=== PATIENT | male | born 1940 | race Caucasian/White ===

== ENCOUNTER → 2016-08-27 | Outpatient (REF) | payer MEDICARE, BC ==
[~2016-08-27] MED LIST: ATOR1TAB21 PO; IMOD2TAB16 PO; KOMBIGLYZE PO; LISI10TA4 PO; SERT-138 PO; TAMS0.4C2 PO; VITA500T53 PO
== END ==
LOC: M SMT 13:19
PROVIDERS: ATTEND Nurse Practitioner Women's Health
DX: R39.15 Urgency of urination (principal)
CPT/HCPCS: 51798; 81001; 87086; G0463

== ENCOUNTER 2017-07-07 10:50 | Emergency (ER) | payer MEDICARE, BC | END 2017-07-07 12:34 | disposition home or self-care (01) | LOC: M ED 10:50 | DX: L03.211 Cellulitis of face (principal); B02.8 Zoster with other complications; E11.9 Type 2 diabetes mellitus without complications; I10 Essential (primary) hypertension; E78.00 Pure hypercholesterolemia, unspecified; M19.90 Unspecified osteoarthritis, unspecified site; Z87.19 Personal history of other diseases of the digestive system; Z87.891 Personal history of nicotine dependence; Z88.8 Allergy status to other drugs, medicaments and biological substances; Z79.899 Other long term (current) drug therapy; Z79.82 Long term (current) use of aspirin | CPT/HCPCS: 99283 ==

== ENCOUNTER → 2018-10-02 | Outpatient (REF) | payer MEDICARE, BC ==
[~2018-10-02] MED LIST changes: +ACYC800T PO; +ASPI81TA85 PO; +CLEO300C2 PO; +JANU50TA8 PO; +NIAC500T64 PO; +OXYB5TAB PO; +PREDOPD PO; +TYLE325T5 PO; +VITA500T17 PO; -VITA500T53 PO
[2018-10-02 18:03] LABS: APPEARANCE, URINE HAZY (CLEAR); BACTERIA, URINE AUTO NEGATIVE (NEGATIVE); BILIRUBIN, URINE AUTO NEGATIVE (NEGATIVE); BLOOD, URINE BLOOD NEGATIVE (NEGATIVE); COLOR, URINE YELLOW (YELLOW); GLUCOSE, URINE (UA) AUTO NEGATIVE (NEGATIVE); KETONE, URINE AUTO NEGATIVE (NEGATIVE); LEUKOCYTE ESTERASE, URINE AUTO 3+ (NEGATIVE); MUCUS, URINE SMALL (NEGATIVE); NITRITE, URINE AUTO NEGATIVE (NEGATIVE); PROTEIN, URINE AUTO NEGATIVE (NEGATIVE); RBC, URINE AUTO 1 /HPF (0-3); SPECIFIC GRAVITY URINE AUTO 1.017 (1.002-1.035); SQUAMOUS EPITHELIAL CELL UR AU 0 /HPF (0-6); UROBILINOGEN, URINE AUTO 0.2 mg/dL (0.0-2.0); WBC, URINE AUTO 2 /HPF (0-3)
== END ==
LOC: M SMT 17:03
PROVIDERS: ATTEND Nurse Practitioner Women's Health
DX: R39.15 Urgency of urination (principal)
CPT/HCPCS: 51798; 81001; 87086; G0463

== ENCOUNTER → 2019-01-21 | Outpatient (REF) | payer MEDICARE, BC ==
[~2019-01-21] MED LIST changes: -OXYB5TAB PO; +OXYB5TAB2 PO
[2019-01-21 14:14] LABS: APPEARANCE, URINE CLEAR (CLEAR); BACTERIA, URINE AUTO NEGATIVE (NEGATIVE); BILIRUBIN, URINE AUTO NEGATIVE (NEGATIVE); BLOOD, URINE BLOOD NEGATIVE (NEGATIVE); COLOR, URINE YELLOW (YELLOW); GLUCOSE, URINE (UA) AUTO NEGATIVE (NEGATIVE); KETONE, URINE AUTO NEGATIVE (NEGATIVE); LEUKOCYTE ESTERASE, URINE AUTO 2+ (NEGATIVE); NITRITE, URINE AUTO NEGATIVE (NEGATIVE); PROTEIN, URINE AUTO NEGATIVE (NEGATIVE); RBC, URINE AUTO 1 /HPF (0-3); SPECIFIC GRAVITY URINE AUTO 1.012 (1.002-1.035); SQUAMOUS EPITHELIAL CELL UR AU 1 /HPF (0-6); UROBILINOGEN, URINE AUTO 0.2 mg/dL (0.0-2.0); WBC, URINE AUTO 27 /HPF (0-3)
== END ==
LOC: M SMT 13:14
PROVIDERS: ATTEND Nurse Practitioner Women's Health
DX: R39.15 Urgency of urination (principal)
CPT/HCPCS: 51798; 81001; 87088; 87184; G0463

== ENCOUNTER → 2020-05-06 | Outpatient (CLI) | payer MEDICARE, BC ==
[~2020-05-06] MED LIST changes: -ASPI81TA85 PO; +ASPI81TA86 PO; +LISI10TA22 PO; -LISI10TA4 PO; +OXYB-54 PO; -OXYB5TAB2 PO
--- NOTE | 2020-05-14 23:28 | ECWPNPC ---
PATIENT NAME: NATHALY HECK : 1940 GENDER: MALE VISIT DATE: 05/06/2020 DISCHARGE DATE: 05/06/20931 VISIT LOCKED DATE TIME: PHYSICIAN: ANN MONGE RESOURCE: ANN MONGE REASON FOR APPOINTMENT 1. LUMBAR HISTORY OF PRESENT ILLNESS DEPRESSION SCREENING: PHQ-9 LITTLE INTEREST OR PLEASURE IN DOING THINGSSEVERAL DAYS FEELING DOWN, DEPRESSED, OR HOPELESSNOT AT ALL TROUBLE FALLING OR STAYING ASLEEP, OR SLEEPING TOO MUCHNEARLY EVERY DAY FEELING TIRED OR HAVING LITTLE ENERGYNEARLY EVERY DAY POOR APPETITE OR OVEREATING NEARLY EVERY DAY FEELING BAD ABOUT YOURSELF-OR THAT YOU ARE A FAILURE OR HAVE LET YOURSELF OR YOUR FAMILY DOWN NEARLY EVERY DAY TROUBLE CONCENTRATING ON THINGS, SUCH READING THE NEWSPAPER OR WATCHING TELEVISION NOT AT ALL MOVING OR SPEAKING SO SLOWLY THAT OTHER PEOPLE COULD HAVE NOTICED. OR THE OPPOSITE- BEING SO FIDGETY OR RESTLESS THAT YOU HAVE BEEN MOVING AROUND A LOT MORE THAN USUALNOT AT ALL THOUGHTS THAT YOU WOULD BE BETTER OFF , OR OF HURTING YOURSELF IN SOME WAY?MORE THAN HALF THE DAYS(CONSIDER SUICIDE ASSESSMENT RISK) TOTAL SCORE:15 INTERPRETATIONMODERATELY SEVERE DEPRESSION PHQ-2 (2015 EDITION) LITTLE INTEREST OR PLEASURE IN DOING THINGS?MORE THAN HALF THE DAYS FEELING DOWN, DEPRESSED, OR HOPELESS?NOT AT ALL TOTAL SCORE2 GENERAL: PLEASANT 79Y/O HERE PER REFERRAL OF [facility] FOR CHRONIC LOW BACK PAIN.REPORTS HE HAD A CYST REMOVED IN 2019 FROM LOW BACK.PAIN IS ACROSS LOW BACK AND DOWN LEFT LEG.PAST MEDICAL HISTOY OF MILD STROKE 2 YEARS AGO.- HAS PAIN WITH AMBULATION AND RELIEF AT REST.REVIEWED MRI OF L/S SPINE AND DISCUSSED TREATMENT OPTIONS. - - - -. FALL RISK SCREENING: SCREENING :TWO OR MORE FALLS WITHOUT INJURY IN THE PAST YEAR PAIN SCREENING: PATIENT HAS A COMPLAINT OF ACUTE OR CHRONIC PAIN :YES LOCATION OF PAIN:LOW BACK PAIN GOES DOWN LEFT LEG INTENSITY OF PAIN (SCALE OF 1 TO 10):3 WHAT DOES YOUR PAIN FEEL LIKE:ACHING DURATION:INTERMITTENT PAIN IS INCREASED BY:ACTIVITIES PAIN IS DECREASED BY:SITTING NURSING NOTE: - - - - - -. PAIN CENTER INTAKE QUESTIONS: DO YOU HAVE A HISTORY OF MRSA? :NO DO YOU TAKE A BLOOD THINNERS? :NO DO YOU HAVE ANY BLEEDING DISORDERS? :NO ANY NEW NUMBNESS OR WEAKNESS IN YOUR LEGS OR ARMS? :NO ANY PACEMAKER,DEFIBRILLATOR, OR DORSAL COLUMN STIMULATOR? :NO DO YOU HAVE ANY RASHES OR OPEN SORES? :NO ARE YOU ALLERGIC TO IV DYE? :NO ARE YOU DIABETIC? :YES ANY NEW PROBLEMS WITH YOUR MEDICATIONS? :NO HAVE YOU RECEIVED A VACCINE IN THE PAST 30 DAYS? :YES IF SO WHAT VACCINE AND WHEN? COVID 1ST DO YOU PLAN TO RECEIVE A VACCINE IN THE NEXT 21 DAYS? :YES IF SO WHAT VACCINE AND WHEN? COVID 2ND DO YOU NEED ANY PRESCRIPTION? :NO DO YOU TAKE ANY IMMUNOSUPPRESSIVE MEDICATIONS? :NO CURRENT MEDICATIONS TAKING ROPINIROLE HCL 0.5 MG TABLET 1 TABLET 1 TO 3 HOURS BEFORE BEDTIME ORALLY BID TAKING ATORVASTATIN CALCIUM 20 MG TABLET 1 TABLET ORALLY ONCE A DAY TAKING VITAMIN D3 50 MCG (2000 UT) CAPSULE 1 CAPSULE ORALLY ONCE A DAY TAKING ASPIR-LOW 81 MG TABLET DELAYED RELEASE 1 TABLET ORALLY ONCE A DAY TAKING B COMPLEX 1 TAB ORAL TAKING JANUMET 50-500 MG TABLET 1 TABLET WITH MEALS ORALLY TWICE A DAY TAKING LOPERAMIDE HCL 2 MG CAPSULE 1 CAPSULE NEEDED ORALLY FOUR TIMES A DAY TAKING SERTRALINE HCL 100 MG TABLET 2 TABLET ORALLY ONCE A DAY TAKING SILODOSIN 8 MG CAPSULE 1 CAPSULE WITH A MEAL ORALLY ONCE A DAY NOT-TAKING LISINOPRIL 10 10 MG TABLET 1/2 TABLET ORAL DAILY NOT-TAKING KOMBIGLYZE 2.07/999 MG DIRECTED NOT-TAKING LIPITOR 10 MG TABLET 1 TABLET ORALLY ONCE A DAY NOT-TAKING OXYBUTYNIN CHLORIDE ER 10 MG TABLET EXTENDED RELEASE 24 HOUR TAKE ONE TABLET BY MOUTH EVERY DAY ORALLY DAILY IN THE EVENING NOT-TAKING MACROBID 100 MG CAPSULE 1 CAP ORALLY BID NOT-TAKING ZOLOFT 100 MG TABLET 1 TABLET ORALLY ONCE A DAY 150MG DAILY NOT-TAKING JANUMET XR 50-1000 MG TABLET EXTENDED RELEASE 24 HOUR 2 TABLETS WITH EVENING MEAL ORALLY ONCE A DAY NOT-TAKING LOPERAMIDE HCL 2 MG CAPSULE 1 CAPSULE NEEDED ORALLY BID NOT-TAKING VITAMIN B 12 500 MCG TABLET 2 TABLET ORALLY ONCE A DAY NOT-TAKING VITAMIN B6 50 MG TABLET 1 TABLET ORALLY DAILY NOT-TAKING GABAPENTIN 300 MG CAPSULE 1 CAPSULE ORALLY ONCE A DAY NOT-TAKING RAPAFLO 8 MG CAPSULE 1 CAPSULE WITH A MEAL ORALLY ONCE A DAY MEDICATION LIST REVIEWED AND RECONCILED WITH THE PATIENT PAST MEDICAL HISTORY DIABETES MELLITUS HYPERTENSION DEPRESSION HYPERLIPIDEMIA HYPERTROPHY BENIGN OF PROSTATE DIVERTICULOSIS COLON ANXIETY LOW BACK PAIN BLOOD TRANSFUSION CATARACTS TYYPE 2 DIABETES HEADACHE NERVE/MUSCLE DISEASE ALLERGIES MOTRIN: HIVES - ALLERGY MOLD: EYE SWELLING - ALLERGY NIACIN: RASH - ALLERGY SURGICAL HISTORY LEFT HERNIA REPAIR,INGUINAL 2007 AORTIC ANURYSM REPAIR 1983 SPINAL CYST REMOVED FAMILY HISTORY FATHER: 93 YRS, OLD AGE MOTHER: 95 YRS SIBLINGS: 62 YRS, HEART PROBLEMS SON(S): , SON -STAB WOUND DAUGHTER(S): ALIVE 4 SON(S) , 2 DAUGHTER(S) - HEALTHY. NEGATIVE FOR PROSTATE CANCER OR ANY OTHER UROLOGIC DISEASE. SOCIAL HISTORY GENERAL: TOBACCO USE ARE YOU A:NONSMOKER LATEX QUESTIONNAIRE LATEX ALLERGY : HAVE YOU EVER DEVELOPED ANY TYPE OF REACTION AFTER HANDLING LATEX PRODUCTS SUCH RUBBER GLOVES, CONDOMS, DIAPHRAGMS, BALLOONS, SOCKS, OR UNDERWEAR?NO LATEX ALLERGY : HAVE YOU EVER DEVELOPED ANY TYPE OF REACTION DURING OR AFTER DENTAL APPOINTMENT, VAGINAL/RECTAL EXAMINATION, SURGICAL PROCEDURE, OR ANY OTHER EXPOSURE?NO LATEX RISK : HAVE YOU EVER HAD ANY DIFFICULTY BREATHING OR HIVES AFTER EATING OR HANDLING ANY FRUITS, OR VEGETABLES; SUCH KIWI, BANANAS, STONE FRUITS, OR CHESTNUTSNO LATEX RISK : DO YOU HAVE A PREVIOUS PERSONAL HISTORY OF MORE THAN NINE SURGERIES, SPINA BIFIDA, OR REPEATED CATHERIZATIONS? NO LATEX RISK : ARE YOU FREQUENTLY EXPOSED TO LATEX PRODUCTS IN YOUR OCCUPATION?NO DATE ASKED : 05/06/2020 ALCOHOL USE: NO. ALCOHOL SCREENING DID YOU HAVE A DRINK CONTAINING ALCOHOL IN THE PAST YEAR?YES HOW OFTEN DID YOU HAVE A DRINK CONTAINING ALCOHOL IN THE PAST YEAR?MONTHLY OR LESS (1 POINT) POINTS1 INTERPRETATIONNEGATIVE RECREATIONAL DRUG USE DENIES. CAFFEINE 2/DAY. UATSDIN UATSDIN NO CONFUCIANISM BELIEFS THAT WOULD IMPACT HEALTH CARE. LANGUAGE SOMALI. LEARNING BARRIERS / SPECIAL NEEDS BARRIERS TO LEARNING?NO HEARING IMPAIRED?NO VISION IMPAIRED?NO READING COGNITIVELY IMPAIRED?NO READINESS TO LEARN?YES LEARNING PREFERENCES?NO LEARNING CAPABILITIES PRESENT?YES EMOTIONAL BARRIERS?NO SPECIAL DEVICES?NO PATIENT CARE COORDINATOR NEEDED?NO DOMESTIC VIOLENCE NONE. 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 EXERCISE: NO REGULAR EXERCISE. MARITAL STATUS: . HOSPITALIZATION/MAJOR DIAGNOSTIC PROCEDURE SURGICAL RELATED REVIEW OF SYSTEMS CONSTITUTIONAL: ANY RECENT FEVER NO . CHILLS NO . WEIGHT CHANGE OF UNKNOWN REASONS NO . GASTROENTEROLOGY: NEW UNEXPLAINABLE CHANGES IN BOWEL CONTROL NO . CONSTIPATION NO . GENITOURINARY: ANY NEW CHANGE IN BLADDER CONTROL? NO . NEUROLOGY: NEW ONSET DIZZINESS OR NEUROLOGICAL CHANGES NOT MENTIONED NO . NEW NUMBNESS OR PAIN PATTERNS NOT MENTIONED AND PERTINENT TO TODAY'S VISIT NO . CARDIOLOGY: NEW CHEST PRESSURE NO . PATIENT DENIES NO . RESPIRATORY: UNEXPLAINABLE COUGH NO . NEW SHORTNESS OF BREATH NO . VITAL SIGNS WT 165.2 LBS, HT 5'6, BMI 32.26 INDEX, BP 102/59 MM HG, HR 82 /MIN, RR 18 /MIN, TEMP 97.1 F, OXYGEN SAT % 100%, SAFE IN ENV? (Y/N) YES, NA INITIALS AW 0847T.CARLOS GUTIERREZ. EXAMINATION GENERAL EXAMINATION: GENERALNO ACUTE DISTRESS, WELL NOURISHED AND HYDRATED. PSYCHAPPROPRIATE MOOD AND AFFECT . NECK:NO LYMPHADENOPATHY, SUPPLE. LUNGS:CLEAR TO AUSCULTATION BILATERALLY, NO WHEEZES, RHONCHI, RALES. HEART:NO MURMURS, REGULAR RATE AND RHYTHM. LUMBAR: MUSCLE STRENGTH TESTING 5/5 BILATERAL, PALPATION: NEGATIVE FOR PAIN OVER L/S SPINE. NEGATIVE FOR PAIN OVER L/S PARSPINALS. 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 PROCEDURE CODES FA211 ESTABILISHED PATIENT [facility] CHARGE DISPOSITION & COMMUNICATION FOLLOW UP PT WILL CALL IF NEEDED (REASON: LOW BACK PAIN) ELECTRONICALLY SIGNED BY ANITHA LOVE ON 05/14/2020 AT 07:45 PM EST DISCLAIMER : THIS IS A VISIT SUMMARY EXTRACTED FROM THE [employer] CHART. IT IS NOT A COPY OF THE [employer] PROGRESS NOTE. TERI
== END ==
LOC: M PAIN 08:30
PROVIDERS: ATTEND Nurse Practitioner Family
DX: M47.816 Spondylosis without myelopathy or radiculopathy, lumbar region (principal); E11.9 Type 2 diabetes mellitus without complications; I10 Essential (primary) hypertension; F32.9 Major depressive disorder, single episode, unspecified; E78.5 Hyperlipidemia, unspecified; N40.0 Benign prostatic hyperplasia without lower urinary tract symptoms; F41.9 Anxiety disorder, unspecified; M54.5 Low back pain; Z79.82 Long term (current) use of aspirin; Z79.899 Other long term (current) drug therapy; Z88.6 Allergy status to analgesic agent; Z88.8 Allergy status to other drugs, medicaments and biological substances; Z91.048 Other nonmedicinal substance allergy status

== ENCOUNTER → 2020-08-16 | Outpatient (CLI) | payer MEDICARE, BC ==
[~2020-08-16] MED LIST changes: +ACYC1TAB4 PO; -ACYC800T PO
--- NOTE | 2020-08-17 00:24 | ECWPNPC ---
PATIENT NAME: NATHALY HECK : 1940 GENDER: MALE VISIT DATE: 08/16/2020 DISCHARGE DATE: 08/16/20952 VISIT LOCKED DATE TIME: PHYSICIAN: ANN MONGE RESOURCE: ANN MONGE REASON FOR APPOINTMENT 1. LUMBER/FOR INJECTIONS HISTORY OF PRESENT ILLNESS GENERAL: 79-YEAR-OLD GENTLEMAN KNOWN TO OUR PRACTICE RETURNS FOR FOLLOW-UP OF PERSISTENT LOW BACK PAIN LEFT GREATER THAN RIGHT. PAIN RADIATES INTO THE LEFT THIGH AND SOMETIMES ON THE RIGHT SIDE. PAIN IS AGGRAVATED BY PROLONGED STANDING OR WALKING. REVIEWED MRI OF THE LS-SPINE AND DISCUSSED TREATMENT OPTIONS. DENIES BOWEL OR BLADDER INCONTINENCE. DENIES RECENT FEVER OR ILLNESS OR SUDDEN WEIGHT LOSS. DENIES INJURY. -. FALL RISK SCREENING: SCREENING FALL ALL THE TIME BUT NEVER GOES TO ER FOR ANY OF THE FALLS. PAIN SCREENING: PATIENT HAS A COMPLAINT OF ACUTE OR CHRONIC PAIN :YES LOCATION OF PAIN:LOW BACK THE PAIN GOES DOWN INTO HIS LEFT BUTTOCK AND DOWN INTO HIS KNEES INTENSITY OF PAIN (SCALE OF 1 TO 10):4 WHAT DOES YOUR PAIN FEEL LIKE:SORE DURATION:ONLY WITH SPECIFIC ACTIVITIES PAIN IS INCREASED BY:ACTIVITIES, PROLONGED STANDING PAIN IS DECREASED BY:OTHERS LAYING ON HUIS BACK ON THE FLOOR NURSING NOTE: -. PAIN CENTER INTAKE QUESTIONS: DO YOU HAVE A HISTORY OF MRSA? :NO DO YOU TAKE A BLOOD THINNERS? :NO DO YOU HAVE ANY BLEEDING DISORDERS? :NO ANY NEW NUMBNESS OR WEAKNESS IN YOUR LEGS OR ARMS? :NO ANY PACEMAKER,DEFIBRILLATOR, OR DORSAL COLUMN STIMULATOR? :NO DO YOU HAVE ANY RASHES OR OPEN SORES? :NO ARE YOU ALLERGIC TO IV DYE? :NO ARE YOU DIABETIC? :YES ANY NEW PROBLEMS WITH YOUR MEDICATIONS? :NO HAVE YOU RECEIVED A VACCINE IN THE PAST 30 DAYS? :NO 1ST COVID 04/11/2020 2ND COVID 05/09/2020 DO YOU PLAN TO RECEIVE A VACCINE IN THE NEXT 21 DAYS? :NO DO YOU NEED ANY PRESCRIPTION? :NO DO YOU TAKE ANY IMMUNOSUPPRESSIVE MEDICATIONS? :NO CURRENT MEDICATIONS TAKING ROPINIROLE HCL 0.5 MG TABLET 1 TABLET 1 TO 3 HOURS BEFORE BEDTIME ORALLY BID TAKING ATORVASTATIN CALCIUM 20 MG TABLET 1 TABLET ORALLY ONCE A DAY TAKING SILODOSIN 8 MG CAPSULE 1 CAPSULE WITH A MEAL ORALLY ONCE A DAY TAKING SERTRALINE HCL 100 MG TABLET 2 TABLET ORALLY ONCE A DAY TAKING LOPERAMIDE HCL 2 MG CAPSULE 1 CAPSULE NEEDED ORALLY FOUR TIMES A DAY TAKING VITAMIN D3 50 MCG (1999 UT) CAPSULE 1 CAPSULE ORALLY ONCE A DAY TAKING ASPIR-LOW 81 MG TABLET DELAYED RELEASE 1 TABLET ORALLY ONCE A DAY TAKING B COMPLEX 1 TAB ORAL TAKING JANUMET 50-500 MG TABLET 1 TABLET WITH MEALS ORALLY TWICE A DAY TAKING RAPAFLO 8 MG CAPSULE TAKE ONE CAPSULE BY MOUTH EVERY DAY WITH A MEAL TAKING GABAPENTIN 300 MG CAPSULE 1 CAPSULE ORALLY ONCE A DAY NOT-TAKING LISINOPRIL 10 10 MG TABLET 1/2 TABLET ORAL DAILY NOT-TAKING KOMBIGLYZE 2.07/999 MG DIRECTED NOT-TAKING LIPITOR 10 MG TABLET 1 TABLET ORALLY ONCE A DAY NOT-TAKING OXYBUTYNIN CHLORIDE ER 10 MG TABLET EXTENDED RELEASE 24 HOUR TAKE ONE TABLET BY MOUTH EVERY DAY ORALLY DAILY IN THE EVENING NOT-TAKING MACROBID 100 MG CAPSULE 1 CAP ORALLY BID NOT-TAKING ZOLOFT 100 MG TABLET 1 TABLET ORALLY ONCE A DAY 150MG DAILY NOT-TAKING JANUMET XR 50-1000 MG TABLET EXTENDED RELEASE 24 HOUR 2 TABLETS WITH EVENING MEAL ORALLY ONCE A DAY NOT-TAKING LOPERAMIDE HCL 2 MG CAPSULE 1 CAPSULE NEEDED ORALLY BID NOT-TAKING VITAMIN B 12 500 MCG TABLET 2 TABLET ORALLY ONCE A DAY NOT-TAKING VITAMIN B6 50 MG TABLET 1 TABLET ORALLY DAILY MEDICATION LIST REVIEWED AND RECONCILED WITH THE PATIENT PAST MEDICAL HISTORY DIABETES MELLITUS HYPERTENSION DEPRESSION HYPERLIPIDEMIA HYPERTROPHY BENIGN OF PROSTATE DIVERTICULOSIS COLON ANXIETY LOW BACK PAIN BLOOD TRANSFUSION CATARACTS TYYPE 2 DIABETES HEADACHE NERVE/MUSCLE DISEASE ALLERGIES MOTRIN: HIVES - ALLERGY MOLD: EYE SWELLING - ALLERGY NIACIN: RASH - ALLERGY SOCIAL HISTORY GENERAL: TOBACCO USE ARE YOU A:NONSMOKER LATEX QUESTIONNAIRE LATEX ALLERGY : HAVE YOU EVER DEVELOPED ANY TYPE OF REACTION AFTER HANDLING LATEX PRODUCTS SUCH RUBBER GLOVES, CONDOMS, DIAPHRAGMS, BALLOONS, SOCKS, OR UNDERWEAR?NO LATEX ALLERGY : HAVE YOU EVER DEVELOPED ANY TYPE OF REACTION DURING OR AFTER DENTAL APPOINTMENT, VAGINAL/RECTAL EXAMINATION, SURGICAL PROCEDURE, OR ANY OTHER EXPOSURE?NO LATEX RISK : HAVE YOU EVER HAD ANY DIFFICULTY BREATHING OR HIVES AFTER EATING OR HANDLING ANY FRUITS, OR VEGETABLES; SUCH KIWI, BANANAS, STONE FRUITS, OR CHESTNUTSNO LATEX RISK : DO YOU HAVE A PREVIOUS PERSONAL HISTORY OF MORE THAN NINE SURGERIES, SPINA BIFIDA, OR REPEATED CATHERIZATIONS? NO LATEX RISK : ARE YOU FREQUENTLY EXPOSED TO LATEX PRODUCTS IN YOUR OCCUPATION?NO DATE ASKED : 08/16/2020 ALCOHOL USE: YES, ONCE OR TWICE A MONTH. ALCOHOL SCREENING DID YOU HAVE A DRINK CONTAINING ALCOHOL IN THE PAST YEAR?YES HOW OFTEN DID YOU HAVE A DRINK CONTAINING ALCOHOL IN THE PAST YEAR?MONTHLY OR LESS (1 POINT) POINTS1 INTERPRETATIONNEGATIVE RECREATIONAL DRUG USE DENIES. CAFFEINE 2/DAY. ORTHODOX ORTHODOX NO SIKHISM BELIEFS THAT WOULD IMPACT HEALTH CARE. LANGUAGE YORUBA. LEARNING BARRIERS / SPECIAL NEEDS BARRIERS TO LEARNING?NO HEARING IMPAIRED?YES :HEARING AIDES VISION IMPAIRED?YES READING COGNITIVELY IMPAIRED?NO READINESS TO LEARN?YES LEARNING PREFERENCES?NO LEARNING CAPABILITIES PRESENT?YES EMOTIONAL BARRIERS?NO SPECIAL DEVICES?NO PLANT SECURITY GUARD NEEDED?NO DOMESTIC VIOLENCE NONE. 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 EXERCISE: NO REGULAR EXERCISE. MARITAL STATUS: . REVIEW OF SYSTEMS CONSTITUTIONAL: ANY RECENT FEVER NO . CHILLS NO . WEIGHT CHANGE OF UNKNOWN REASONS NO . GASTROENTEROLOGY: NEW UNEXPLAINABLE CHANGES IN BOWEL CONTROL NO . CONSTIPATION NO . GENITOURINARY: ANY NEW CHANGE IN BLADDER CONTROL? NO . NEUROLOGY: NEW ONSET DIZZINESS OR NEUROLOGICAL CHANGES NOT MENTIONED NO . NEW NUMBNESS OR PAIN PATTERNS NOT MENTIONED AND PERTINENT TO TODAY'S VISIT NO . CARDIOLOGY: NEW CHEST PRESSURE NO . PATIENT DENIES NO . RESPIRATORY: UNEXPLAINABLE COUGH NO . NEW SHORTNESS OF BREATH NO . VITAL SIGNS WT 159.6 LBS, HT 5'6, BMI 31.17 INDEX, BP 135/64 MM HG, HR 65 /MIN, RR 18 /MIN, TEMP 96.8 F, OXYGEN SAT % 94%, SAFE IN ENV? (Y/N) YES, NA INITIALS NM 08:51T.CARLOS GUTIERREZ. EXAMINATION GENERAL EXAMINATION: GENERALNO ACUTE DISTRESS, WELL NOURISHED AND HYDRATED. PSYCHAPPROPRIATE MOOD AND AFFECT . FACE:UNREMARKABLE. NECK:NO LYMPHADENOPATHY, SUPPLE. LUNGS: LUNG SOUNDS ARE CLEAR . HEART: HEART RATE REGULAR . MUSCULOSKELETAL:*, MUSCLE STRENGTH TESTING 5/5 BILATERAL LOWER EXTREMITIES., ,PALPATION: POSITIVE FOR PAIN OVER L/S SPINE. POSITIVE FOR PAIN OVER L/S PARSPINALS.SPECIFIC POINT TENDERNESS OVER BILAT L4/5-L5/S1 LUMBR FACETS WITH FACET LOADING . NEUROLOGIC EXAM:NORMAL SENSATION TO LIGHT TOUCH UPPER AND LOWER EXTREMITIES. . DIAGNOSTIC TESTS REVIEWEDMRI LUMBAR SPINE 03/08/2020 . 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 PROCEDURE CODES FA211 ESTABILISHED PATIENT [facility] CHARGE DISPOSITION & COMMUNICATION FOLLOW UP POST PROCEDURE (REASON: BILATERAL THERAPEUTIC LUMBAR FACET BLOCK L4-5,L5-S1) ELECTRONICALLY SIGNED BY ANITHA LOVE ON 08/16/2020 AT 08:30 PM EDT DISCLAIMER : THIS IS A VISIT SUMMARY EXTRACTED FROM THE [employer] CHART. IT IS NOT A COPY OF THE [employer] PROGRESS NOTE. TERI
== END ==
LOC: M PAIN 09:00
PROVIDERS: ATTEND Nurse Practitioner Family
DX: M47.816 Spondylosis without myelopathy or radiculopathy, lumbar region (principal); E11.9 Type 2 diabetes mellitus without complications; Z86.59 Personal history of other mental and behavioral disorders; Z88.6 Allergy status to analgesic agent; Z88.8 Allergy status to other drugs, medicaments and biological substances; Z79.82 Long term (current) use of aspirin; Z79.84 Long term (current) use of oral hypoglycemic drugs; Z79.899 Other long term (current) drug therapy

== ENCOUNTER → 2020-09-10 | Outpatient (CLI) | payer MEDICARE, BC | LOC: M LABSMTC 08:03 | PROVIDERS: ATTEND Anesthesiology | DX: Z20.822 Contact with and (suspected) exposure to COVID-19 (principal) ==

== ENCOUNTER → 2020-09-15 | Outpatient (CLI) | payer MEDICARE, BC ==
--- NOTE | 2020-09-15 10:35 | REP ---
INDICATION: BILAT LFBT. COMPARISON: None. TECHNIQUE: Two views. 24.0 seconds of fluoroscopy time is reported. FINDINGS: A sequence of 2 last image hold fluoroscopically obtained spot radiograph(s) of the lumbar spine document(s) needle position(s) and contrast injection associated with injection procedure. IMPRESSION: Procedural imaging. <Electronically signed by Cristian Hernández > 09/15/20 [id number]
--- NOTE | 2020-09-16 03:18 | ECWPNPC ---
PATIENT NAME: NATHALY HECK : 1940 GENDER: MALE VISIT DATE: 09/15/2020 DISCHARGE DATE: 09/15/20 1054 VISIT LOCKED DATE TIME: PHYSICIAN: NICHOLAS ACEVES MD RESOURCE: NICHOLAS ACEVES MD REASON FOR APPOINTMENT 1. BILATERAL THERAPEUTIC LUMBAR FACET BLOCK L4-5,L5-S1 HISTORY OF PRESENT ILLNESS GENERAL: -. FALL RISK SCREENING: SCREENING : STATES HE HAS FALLEN MANY TIMES(AT LEAST 6), STATES HE LOSES HIS BALANCE WHEN HE LEANS FORWARD. HIT HIS HEAD ONCE-NO LOC. JUST CUTS AND BRUISES. NOT EVALUATED AFTER ANY OF THE FALLS. HAS TROUBLE WALKIN ON UNEVEN GROUND. PAIN SCREENING: PATIENT HAS A COMPLAINT OF ACUTE OR CHRONIC PAIN :YES LOCATION OF PAIN:LOW BACK, THIGH(S), KNEES LEFT THIGH AND LEFT KNEE INTENSITY OF PAIN (SCALE OF 1 TO 10):9 8-9 DEPENDING ON WHAT HE IS DOING WHAT DOES YOUR PAIN FEEL LIKE:ACHING, BURNING, INTERMITTENT, SHARP, TENDER, THROBBING, SHOOTING DURATION:MAINLY DURING THE DAY, INTERMITTENT WITH ACTIVITY PAIN IS INCREASED BY:ACTIVITIES, PROLONGED STANDING PROLONGED SITTING PAIN IS DECREASED BY:USE OF PAIN MEDICATIONS, OTHERS REST AND TYLENOL PAIN HAS INTERFERED WITH THE FOLLOWING: PRETTY MUCH EVERYTHING. CAN'T WALK VERY FAR AT ALL NURSING NOTE: -. PAIN CENTER INTAKE QUESTIONS: DO YOU HAVE A HISTORY OF MRSA? :NO DO YOU TAKE A BLOOD THINNERS? :NO DO YOU HAVE ANY BLEEDING DISORDERS? :NO ANY NEW NUMBNESS OR WEAKNESS IN YOUR LEGS OR ARMS? :NO ANY PACEMAKER,DEFIBRILLATOR, OR DORSAL COLUMN STIMULATOR? :NO DO YOU HAVE ANY RASHES OR OPEN SORES? :YES MULTIPLE BRUISES DUE TO THIN SKIN, NO OPEN AREAS AT THIS TIME ARE YOU ALLERGIC TO IV DYE? :NO ARE YOU DIABETIC? :YES ANY NEW PROBLEMS WITH YOUR MEDICATIONS? :NO HAVE YOU RECEIVED A VACCINE IN THE PAST 30 DAYS? :NO DO YOU PLAN TO RECEIVE A VACCINE IN THE NEXT 21 DAYS? :NO DO YOU TAKE ANY IMMUNOSUPPRESSIVE MEDICATIONS? :NO ANY HISTORY OF SEIZURES? :NO ANY HISTORY OF CARDIAC ISSUES OR EVENTS? :YES AORTIC ANEURYSM REPAIR, MILD STROKE DO YOU HAVE ANY KIDNEY OR LIVER DISEASE? :NO DO YOU HAVE SLEEP APNEA? :YES DO YOU WEAR A CPAP?YES ANY RECENT HEAD INJURY? :NO DO YOU HAVE ANY NEW INFECTIONS? :NO IS THERE A CHANCE YOU COULD BE ? :NO ARE YOU BREAST FEEDING? :NO WHEN DID YOU LAST EAT? : 09/14/20 WHEN DID YOU LAST DRINK? : 09/15/20 0300 WHAT DID YOU LAST DRINK? : WATER NAME OF PERSON DRIVING YOU HOME? : -MEENA DO YOU HAVE ANY OTHER QUESTIONS OR CONCERNS? : WANTED TO KNOW WHAT TO EXPECT FAR PAIN DUING THE PROCEDURE. PROCEDURE PROCESS EXPLAINED TO PT. ALONG WITH MEDICATIONS HE WILL RECEIVE PRE-PROCEDURE. PT. VERBALIZED UNDERSTANDING. CURRENT MEDICATIONS TAKING ROPINIROLE HCL 0.5 MG TABLET 1 TABLET ORALLY BID TAKING ATORVASTATIN CALCIUM 20 MG TABLET 1 TABLET ORALLY ONCE A DAY TAKING SILODOSIN 8 MG CAPSULE 1 CAPSULE WITH A MEAL ORALLY ONCE A DAY TAKING SERTRALINE HCL 100 MG TABLET 2 TABLET ORALLY ONCE A DAY TAKING LOPERAMIDE HCL 2 MG CAPSULE 1 CAP ORALLY BID TAKING VITAMIN D3 50 MCG (2000 UT) CAPSULE 1 CAPSULE ORALLY ONCE A DAY TAKING ASPIR-LOW 81 MG TABLET DELAYED RELEASE 1 TABLET ORALLY ONCE A DAY TAKING B COMPLEX 1 TAB ORAL DAILY TAKING JANUMET 50-500 MG TABLET 1 TABLET WITH MEALS ORALLY TWICE A DAY, NOTES: 09/14/20 TAKING TURMERIC 1000 MGS 1 CAP ORALLY BID NOT-TAKING RAPAFLO 8 MG CAPSULE TAKE ONE CAPSULE BY MOUTH EVERY DAY WITH A MEAL , NOTES: DUPLICATE NOT-TAKING GABAPENTIN 300 MG CAPSULE 1 CAPSULE ORALLY ONCE A DAY NOT-TAKING LISINOPRIL 10 10 MG TABLET 1/2 TABLET ORAL DAILY NOT-TAKING KOMBIGLYZE 2.07/999 MG DIRECTED NOT-TAKING LIPITOR 10 MG TABLET 1 TABLET ORALLY ONCE A DAY NOT-TAKING OXYBUTYNIN CHLORIDE ER 10 MG TABLET EXTENDED RELEASE 24 HOUR TAKE ONE TABLET BY MOUTH EVERY DAY ORALLY DAILY IN THE EVENING NOT-TAKING MACROBID 100 MG CAPSULE 1 CAP ORALLY BID NOT-TAKING ZOLOFT 100 MG TABLET 1 TABLET ORALLY ONCE A DAY 150MG DAILY NOT-TAKING JANUMET XR 50-1000 MG TABLET EXTENDED RELEASE 24 HOUR 2 TABLETS WITH EVENING MEAL ORALLY ONCE A DAY NOT-TAKING LOPERAMIDE HCL 2 MG CAPSULE 1 CAPSULE NEEDED ORALLY BID NOT-TAKING VITAMIN B 12 500 MCG TABLET 2 TABLET ORALLY ONCE A DAY NOT-TAKING VITAMIN B6 50 MG TABLET 1 TABLET ORALLY DAILY MEDICATION LIST REVIEWED AND RECONCILED WITH THE PATIENT PAST MEDICAL HISTORY DIABETES MELLITUS HYPERTENSION DEPRESSION HYPERLIPIDEMIA HYPERTROPHY BENIGN OF PROSTATE DIVERTICULOSIS COLON ANXIETY LOW BACK PAIN BLOOD TRANSFUSION CATARACTS TYYPE 2 DIABETES HEADACHE 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(THINKS THE STROKE WAS 2-3 YRS AGO) AORTIC ANEURYSM REPAIRED 1983 [facility] 2018 ALLERGIES MOTRIN: HIVES - ALLERGY MOLD: EYE SWELLING - ALLERGY NIACIN: RASH - ALLERGY GABAPENTIN: DIZZY AND MULTIPLE ISSUES - ALLERGY SOCIAL HISTORY GENERAL: TOBACCO USE ARE YOU A:FORMER SMOKER QUIT 10-12 YRS AGO LATEX QUESTIONNAIRE LATEX ALLERGY : HAVE YOU EVER DEVELOPED ANY TYPE OF REACTION AFTER HANDLING LATEX PRODUCTS SUCH RUBBER GLOVES, CONDOMS, DIAPHRAGMS, BALLOONS, SOCKS, OR UNDERWEAR?NO LATEX ALLERGY : HAVE YOU EVER DEVELOPED ANY TYPE OF REACTION DURING OR AFTER DENTAL APPOINTMENT, VAGINAL/RECTAL EXAMINATION, SURGICAL PROCEDURE, OR ANY OTHER EXPOSURE?NO LATEX RISK : HAVE YOU EVER HAD ANY DIFFICULTY BREATHING OR HIVES AFTER EATING OR HANDLING ANY FRUITS, OR VEGETABLES; SUCH KIWI, BANANAS, STONE FRUITS, OR CHESTNUTSNO LATEX RISK : DO YOU HAVE A PREVIOUS PERSONAL HISTORY OF MORE THAN NINE SURGERIES, SPINA BIFIDA, OR REPEATED CATHERIZATIONS? NO LATEX RISK : ARE YOU FREQUENTLY EXPOSED TO LATEX PRODUCTS IN YOUR OCCUPATION?NO DATE ASKED : 09/13/2020 ALCOHOL USE: YES, ONCE OR TWICE A MONTH. ALCOHOL SCREENING DID YOU HAVE A DRINK CONTAINING ALCOHOL IN THE PAST YEAR?YES HOW OFTEN DID YOU HAVE A DRINK CONTAINING ALCOHOL IN THE PAST YEAR?MONTHLY OR LESS (1 POINT) POINTS1 INTERPRETATIONNEGATIVE RECREATIONAL DRUG USE DENIES. CAFFEINE 2/DAY. MANDAEN MANDAEN NO ROMAN CATHOLIC BELIEFS THAT WOULD IMPACT HEALTH CARE. LANGUAGE ANGUILLAN. 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 EXERCISE: NO REGULAR EXERCISE. MARITAL STATUS: . - HAS THE PATIENT BEEN EDUCATED REGARDING HIS/HER PLAN OF CARE?YES HAS THE PATIENT BEEN EDUCATED REGARDING PAIN, THE RISK FOR PAIN, THE IMPORTANCE OF EFFECTIVE PAIN MANAGEMENT, AND THE PAIN ASSESSMENT PROCESS?YES ADVANCE DIRECTIVE ADVANCE DIRECTIVE DISCUSSED WITH PATIENT:YES STATES HE HAS HCP, LIVING WILL AND POA-ASKED TO BRING COPIES IN- HCP -MEENA [phone], 2ND KAYE NELY [phone] VITAL SIGNS WT 157.2 LBS, HT 5'6, BMI 30.70 INDEX, BP 142/63 MM HG, HR 68 /MIN, RR 18 /MIN, TEMP 98.0 F, OXYGEN SAT % 92%, BLOOD GLUCOSE LEVEL 120, NA INITIALS AW 0843FS @ HOME THIS AM BY PT. EM. EXAMINATION GENERAL: THE PATIENT IS ALERT, ORIENTED TIMES THREE AND COOPERATIVE. LUNGS ARE CLEAR TO AUSCULTATION. HEART SHOWS REGULAR RHYTHM, NO MURMURS AND NO GALLOPS. 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) TREATMENT LUMBAR FACET ARTHROPATHY [facility] FACET BLOCK (PAIN)[id number] COMPLETION OF PROCEDURAL VISIT WHEN MEETS CRITERIAJESSI VILLAGOMEZ 09/15/2020 12:02:44 PM > CRITERIA MET @ 1053 MEDICATION: VALIUM TAB 5MG ORALLY (DIAZEPAM)KEITH MEJÍA 09/15/2020 9:07:21 AM > VERIFIED JESSI VILLAGOMEZ 09/15/2020 9:10:18 AM > ADMINISTERED MEDICATION: OXYCODONE HCL TAB 5MG ORALLY KEITH MEJÍA 09/15/2020 9:07:52 AM > VERIFIED JESSI VILLAGOMEZ 09/15/2020 9:10:37 AM > ADMINISTERED SALINE LOCKSOHA KEITH 09/15/2020 9:05:38 AM > #22 SL STARTED X 1 ATTEMPT BY THIS ROPE COILING MACHINE OPERATOR IN RIGHT HAND. SITE ASYMPTOMATIC, FLUSHES WELL. PATIENT TOLERATED WELL OTHERS NOTES: 09/13/20 0955 PRE-PROCEDURE CALL COMPLETED. Nayeli COPE RN. PROCEDURES PAIN NURSING RECORD PROCEDURE IN ROOM 1000, PHYSICIAN IN ROOM 1012, START 1017, FINISH 1022, PHYSICIAN OUT OF ROOM 1023, OUT OF ROOM 1025, ECG NORMAL SINUS, PATIENT SHIELDED YES, SAFETY STRAP YES, PREP CHLOROPREP Rodrigue VILLAGOMEZ RN, DRESSING TEGADERM DR. ACEVES LOC: 1. ALERT, ORIENTED, JESSI VILLAGOMEZ 09/15/2020 10:17:41 AM > RESP: 1. REGULAR, NO DYSPNEA, JESSI VILLAGOMEZ 09/15/2020 10:17:46 AM > COLOR: 1. PINK, JESSI VILLAGOMEZ 09/15/2020 10:17:49 AM > SKIN: 1. WARM, DRY, JESSI VILLAGOMEZ 09/15/2020 10:17:53 AM > POSITION: 1. PRONE, JESSI VILLAGOMEZ 09/15/2020 10:05:59 AM > VITALS: AW 0925 P 60 02 96% BP 122/59 R 18 0940 P 61 02 97% BP 123/67 R18 AW 0955 P61 02 95% BP 128/60 R 18 149/69, 61, 16, 96%, JESSI VILLAGOMEZ 09/15/2020 10:06:28 AM > 134/68, 63, 16, 96%, JESSI VILLAGOMEZ 09/15/2020 10:15:22 PM > 138/63, 61, 16, 95%, JESSI VILLAGOMEZ 09/15/2020 10:20:50 PM > 130/62, 59, 16, 98%, JESSI VILLAGOMEZ 09/15/2020 10:30:12 PM > NOTES Rodrigue VILLAGOMEZ RN, JESSI VILLAGOMEZ 09/15/2020 9:48:20 AM > COMPLETION OF PROCEDURE APPOINTMENT: POST PAIN 4, DRESSING SITE DRY AND INTACT, IV DISCONTINUED, SITE CLEAR, CATHETER INTACT, GAIT STEADY, TEACHING COMPLETED, PATIENT ACKNOWLEDGES UNDERSTANDING YES, PROCEDURE APPOINTMENT COMPLETED AT 1053 PN LUMBAR FACET BLOCK THERAPEUTIC PRE PROCEDURE DIAGNOSIS LUMBAR SPONDYLOSIS, LUMBOSACRAL SPONDYLOSIS POST PROCEDURE DIAGNOSIS LUMBAR SPONDYLOSIS, LUMBOSACRAL SPONDYLOSIS PROCEDURE BILATERAL L4-L5 AND BILATERAL L5-S1 LUMBAR FACET THERAPEUTIC BLOCK SURGEON DR. NICHOLAS ACEVES DRAFTER AUTOMOTIVE DESIGN LAYOUT NONE ANESTHESIA LOCAL PRE PROCEDURE NOTE THE PATIENT HAS A HISTORY OF CHRONIC LOW BACK PAIN. I EVALUATED THE PATIENT AND REVIEWED THE CHART. I WENT OVER THE RISKS, ALTERNATIVES, AND BENEFITS ASSOCIATED WITH THIS PROCEDURE. THE PATIENT WOULD LIKE TO PROCEED AND GIVES CONSENT TO PERFORM THE PROCEDURE. THE PATIENT DENIES UNEXPLAINABLE WEIGHT LOSS, FEVER, CHILLS, OR NEW CHANGES IN URINARY OR BOWEL CONTROL. THE PATIENT IS COVID-19 NEGATIVE DESCRIPTION OF PROCEDURE THE PATIENT WAS BROUGHT TO THE PROCEDURE ROOM AND PLACED IN THE PRONE POSITION. THE LUMBOSACRAL AREA WAS CLEANED WITH CHLORAPREP SOLUTION AND DRAPED ASEPTICALLY. THE PROCEDURE WAS DONE UNDER STERILE CONDITIONS. A TIMEOUT WAS PERFORMED WHERE THE CONSENTED SITE WAS VERIFIED WITH EVERYONE IN THE ROOM. UNDER FLUOROSCOPIC GUIDANCE, THE TARGET POINT WAS SELECTED AT THE RIGHT AND LEFT L4-L5 AND RIGHT AND LEFT L5-S1 FACET JOINTS. TARGET POINT WAS SELECTED AFTER LATERAL ROTATION AND TILT OF THE MAGNIFIER OF THE C-ARM. I CONFIRMED AGAIN THE SITE OF TARGET. LIDOCAINE 0.5% WAS USED TO NUMB THE SKIN AND THE SUBCUTANEOUS TISSUE BELOW IT. SPINAL NEEDLES, 22-GAUGE, WERE ADVANCED UNDER FLUOROSCOPIC GUIDANCE AND FOLLOWING PATIENT FEEDBACK UNTIL THE TARGETS WERE TOUCHED. THE POSITION OF THE NEEDLES WAS VERIFIED WITH AP AND LATERAL VIEWS. AFTER PROPER POSITION OF THE NEEDLES WAS ACHIEVED, ISOVUE-M DYE 30%, 0.1 ML, WAS INJECTED SHOWING ADEQUATE SPREAD OF THE DYE. KENALOG 10 MG WAS INJECTED AT EACH SITE. THEN, A SOLUTION OF 1.0 ML OF BUPIVACAINE 0.125% OF WAS USED TO FLUSH EACH SITE. THE MEDICATION WAS VERIFIED WITH THE NURSE. THERE WAS NO EVIDENCE OF BLOOD, PARESTHESIA OR CEREBROSPINAL FLUID DURING THE PROCEDURE. THE PATIENT WAS SENT TO THE RECOVERY ROOM. THE PATIENT WAS MOVING THE EXTREMITIES AND DOING WELL. THERE WERE NO COMPLICATIONS DURING THE PROCEDURE. ESTIMATED BLOOD LOSS WAS LESS THAN 5 ML. FLUOROSCOPY TIME WAS 24 SECONDS POST PROCEDURE NOTE THE PATIENT WAS UNCOMFORTABLE DURING THE PROCEDURE, CONSIDER USING MORE MEDICATION BEFORE THE PROCEDURE. DEPENDING ON THE RESULTS, CONSIDER A LUMBAR EPIDURAL. THE PATIENT WILL BE SEEN IN A FOLLOW UP IN THE NEXT FEW WEEKS. I AM LOOKING FOR LONG LASTING RELIEF FOR THE PATIENT WITH THIS INTERVENTION. INSTRUCTIONS WERE GIVEN, QUESTIONS WERE ANSWERED, AND THE PATIENT EXPRESSED UNDERSTANDING AND AGREES WITH THE PLAN. I, JAILENE FREGOSO, DOCUMENTED THE ABOVE INFORMATION ACTING A SCRIBE FOR DR. ACEVES. I HAVE REVIEWED THE ABOVE DOCUMENT, WRITTEN BY JAILENE FREGOSO, LUMBER GRADER, AND I VERIFY THAT IT IS ACCURATE PROCEDURE CODES 83309 INJ PARAVERT F JNT L/S 1 LEV, MODIFIERS: 50 20621 INJ PARAVERT F JNT L/S 2 LEV, MODIFIERS: 50 DISPOSITION & COMMUNICATION FOLLOW UP FOLLOW UP WITH FURNITURE POLISHER (REASON: POST BILATERAL THERAPEUTIC LUMBAR FACET BLOCK L4-L5, L5-S1) ELECTRONICALLY SIGNED BY NICHOLAS ACEVES MD, MD ON 09/15/2020 AT 12:36 PM EDT DISCLAIMER : THIS IS A VISIT SUMMARY EXTRACTED FROM THE [employer] CHART. IT IS NOT A COPY OF THE [employer] PROGRESS NOTE. TERI
== END ==
LOC: M PAIN 08:30
PROVIDERS: ATTEND Anesthesiology
DX: M47.816 Spondylosis without myelopathy or radiculopathy, lumbar region (principal); E11.9 Type 2 diabetes mellitus without complications; G47.30 Sleep apnea, unspecified; Z86.59 Personal history of other mental and behavioral disorders; Z87.891 Personal history of nicotine dependence; Z88.6 Allergy status to analgesic agent; Z88.8 Allergy status to other drugs, medicaments and biological substances; Z79.82 Long term (current) use of aspirin; Z79.84 Long term (current) use of oral hypoglycemic drugs; Z79.899 Other long term (current) drug therapy

== ENCOUNTER → 2020-09-29 | Outpatient (CLI) | payer MEDICARE, BC ==
--- NOTE | 2020-09-30 05:31 | ECWPNPC ---
PATIENT NAME: NATHALY HECK : 1940 GENDER: MALE VISIT DATE: 09/29/2020 DISCHARGE DATE: 09/29/20 1011 VISIT LOCKED DATE TIME: PHYSICIAN: ANN MONGE RESOURCE: ANN MONGE REASON FOR APPOINTMENT 1. POST BILATERAL THERAPEUTIC LUMBAR FACET BLOCK L4-5,L5-S1 HISTORY OF PRESENT ILLNESS GENERAL: HERE FOR POSTPROCEDURE FOLLOW-UP. HE HAD BILATERAL THERAPEUTIC LUMBAR FACET BLOCK L4-5, L5-S1 ON 09/15/2020. REPORTING GREATER THAN 80% REDUCTION IN PAIN THAT CONTINUES TODAY. REPORTING IMPROVED ACTIVITY TOLERANCE. STATES HE HAS INTERMITTENT ACHING IN HIS LOWER BACK. OVERALL VERY HAPPY WITH THE RESULTS. -. FALL RISK SCREENING: SCREENING : NO FALLS REPORTED IN THE LAST YEAR. PAIN SCREENING: PATIENT HAS A COMPLAINT OF ACUTE OR CHRONIC PAIN :YES LOCATION OF PAIN:LOW BACK INTENSITY OF PAIN (SCALE OF 1 TO 10):2 WHAT DOES YOUR PAIN FEEL LIKE:ACHING, INTERMITTENT DURATION:ONLY WITH SPECIFIC ACTIVITIES, INTERMITTENT PAIN IS INCREASED BY:ACTIVITIES, PROLONGED STANDING PAIN IS DECREASED BY:OTHERS RESTING NURSING NOTE: -. PAIN CENTER INTAKE QUESTIONS: DO YOU HAVE A HISTORY OF MRSA? :NO DO YOU TAKE A BLOOD THINNERS? :NO DO YOU HAVE ANY BLEEDING DISORDERS? :NO ANY NEW NUMBNESS OR WEAKNESS IN YOUR LEGS OR ARMS? :NO ANY PACEMAKER,DEFIBRILLATOR, OR DORSAL COLUMN STIMULATOR? :NO DO YOU HAVE ANY RASHES OR OPEN SORES? :NO ARE YOU ALLERGIC TO IV DYE? :NO ARE YOU DIABETIC? :YES ANY NEW PROBLEMS WITH YOUR MEDICATIONS? :NO HAVE YOU RECEIVED A VACCINE IN THE PAST 30 DAYS? :NO DO YOU PLAN TO RECEIVE A VACCINE IN THE NEXT 21 DAYS? :NO DO YOU NEED ANY PRESCRIPTION? :NO DO YOU TAKE ANY IMMUNOSUPPRESSIVE MEDICATIONS? :NO CURRENT MEDICATIONS TAKING ROPINIROLE HCL 0.5 MG TABLET 1 TABLET ORALLY BID TAKING ATORVASTATIN CALCIUM 20 MG TABLET 1 TABLET ORALLY ONCE A DAY TAKING SILODOSIN 8 MG CAPSULE 1 CAPSULE WITH A MEAL ORALLY ONCE A DAY TAKING SERTRALINE HCL 100 MG TABLET 2 TABLET ORALLY ONCE A DAY TAKING LOPERAMIDE HCL 2 MG CAPSULE 1 CAP ORALLY BID TAKING VITAMIN D3 50 MCG (2000 UT) CAPSULE 1 CAPSULE ORALLY ONCE A DAY TAKING ASPIR-LOW 81 MG TABLET DELAYED RELEASE 1 TABLET ORALLY ONCE A DAY TAKING B COMPLEX 1 TAB ORAL DAILY TAKING JANUMET 50-500 MG TABLET 1 TABLET WITH MEALS ORALLY TWICE A DAY, NOTES: 09/14/20 TAKING TURMERIC 1000 MGS 1 CAP ORALLY BID NOT-TAKING RAPAFLO 8 MG CAPSULE TAKE ONE CAPSULE BY MOUTH EVERY DAY WITH A MEAL , NOTES: DUPLICATE NOT-TAKING GABAPENTIN 300 MG CAPSULE 1 CAPSULE ORALLY ONCE A DAY NOT-TAKING LISINOPRIL 10 10 MG TABLET 1/2 TABLET ORAL DAILY NOT-TAKING KOMBIGLYZE 2.07/999 MG DIRECTED NOT-TAKING LIPITOR 10 MG TABLET 1 TABLET ORALLY ONCE A DAY NOT-TAKING OXYBUTYNIN CHLORIDE ER 10 MG TABLET EXTENDED RELEASE 24 HOUR TAKE ONE TABLET BY MOUTH EVERY DAY ORALLY DAILY IN THE EVENING NOT-TAKING MACROBID 100 MG CAPSULE 1 CAP ORALLY BID NOT-TAKING ZOLOFT 100 MG TABLET 1 TABLET ORALLY ONCE A DAY 150MG DAILY NOT-TAKING JANUMET XR 50-1000 MG TABLET EXTENDED RELEASE 24 HOUR 2 TABLETS WITH EVENING MEAL ORALLY ONCE A DAY NOT-TAKING LOPERAMIDE HCL 2 MG CAPSULE 1 CAPSULE NEEDED ORALLY BID NOT-TAKING VITAMIN B 12 500 MCG TABLET 2 TABLET ORALLY ONCE A DAY NOT-TAKING VITAMIN B6 50 MG TABLET 1 TABLET ORALLY DAILY MEDICATION LIST REVIEWED AND RECONCILED WITH THE PATIENT PAST MEDICAL HISTORY DIABETES MELLITUS HYPERTENSION DEPRESSION HYPERLIPIDEMIA HYPERTROPHY BENIGN OF PROSTATE DIVERTICULOSIS COLON ANXIETY LOW BACK PAIN BLOOD TRANSFUSION CATARACTS TYYPE 2 DIABETES HEADACHE 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(THINKS THE STROKE WAS 2-3 YRS AGO) AORTIC ANEURYSM REPAIRED 1983 [facility]2017 COVID 04/11/2020 2ND COVID 05/09/2020 ALLERGIES MOTRIN: HIVES - ALLERGY MOLD: EYE SWELLING - ALLERGY NIACIN: RASH - ALLERGY GABAPENTIN: DIZZY AND MULTIPLE ISSUES - ALLERGY SOCIAL HISTORY GENERAL: TOBACCO USE ARE YOU A:FORMER SMOKER QUIT 10-12 YRS AGO LATEX QUESTIONNAIRE LATEX ALLERGY : HAVE YOU EVER DEVELOPED ANY TYPE OF REACTION AFTER HANDLING LATEX PRODUCTS SUCH RUBBER GLOVES, CONDOMS, DIAPHRAGMS, BALLOONS, SOCKS, OR UNDERWEAR?NO LATEX ALLERGY : HAVE YOU EVER DEVELOPED ANY TYPE OF REACTION DURING OR AFTER DENTAL APPOINTMENT, VAGINAL/RECTAL EXAMINATION, SURGICAL PROCEDURE, OR ANY OTHER EXPOSURE?NO LATEX RISK : HAVE YOU EVER HAD ANY DIFFICULTY BREATHING OR HIVES AFTER EATING OR HANDLING ANY FRUITS, OR VEGETABLES; SUCH KIWI, BANANAS, STONE FRUITS, OR CHESTNUTSNO LATEX RISK : DO YOU HAVE A PREVIOUS PERSONAL HISTORY OF MORE THAN NINE SURGERIES, SPINA BIFIDA, OR REPEATED CATHERIZATIONS? NO LATEX RISK : ARE YOU FREQUENTLY EXPOSED TO LATEX PRODUCTS IN YOUR OCCUPATION?NO DATE ASKED : 09/29/2020 ALCOHOL USE: YES, ONCE OR TWICE A MONTH. ALCOHOL SCREENING DID YOU HAVE A DRINK CONTAINING ALCOHOL IN THE PAST YEAR?YES HOW OFTEN DID YOU HAVE A DRINK CONTAINING ALCOHOL IN THE PAST YEAR?MONTHLY OR LESS (1 POINT) POINTS1 INTERPRETATIONNEGATIVE RECREATIONAL DRUG USE DENIES. CAFFEINE 2/DAY. SPIRITISM SPIRITISM NO FAITH BELIEFS THAT WOULD IMPACT HEALTH CARE. LANGUAGE GREENLANDIC. 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 OCCUPATION: [employer]. EXERCISE: NO REGULAR EXERCISE. MARITAL STATUS: . - HAS THE PATIENT BEEN EDUCATED REGARDING HIS/HER PLAN OF CARE?YES HAS THE PATIENT BEEN EDUCATED REGARDING PAIN, THE RISK FOR PAIN, THE IMPORTANCE OF EFFECTIVE PAIN MANAGEMENT, AND THE PAIN ASSESSMENT PROCESS?YES ADVANCE DIRECTIVE ADVANCE DIRECTIVE DISCUSSED WITH PATIENT:YES STATES HE HAS HCP, LIVING WILL AND POA-ASKED TO BRING COPIES IN- HCP -MEENA [phone], 2ND KAYEHETAL MCKAY [phone] REVIEW OF SYSTEMS CONSTITUTIONAL: ANY RECENT FEVER NO . CHILLS NO . WEIGHT CHANGE OF UNKNOWN REASONS NO . GASTROENTEROLOGY: NEW UNEXPLAINABLE CHANGES IN BOWEL CONTROL NO . CONSTIPATION NO . GENITOURINARY: ANY NEW CHANGE IN BLADDER CONTROL? NO . NEUROLOGY: NEW ONSET DIZZINESS OR NEUROLOGICAL CHANGES NOT MENTIONED NO . NEW NUMBNESS OR PAIN PATTERNS NOT MENTIONED AND PERTINENT TO TODAY'S VISIT NO . CARDIOLOGY: NEW CHEST PRESSURE NO . PATIENT DENIES NO . RESPIRATORY: UNEXPLAINABLE COUGH NO . NEW SHORTNESS OF BREATH NO . VITAL SIGNS WT 156 LBS, HT 5'6, BMI 30.46 INDEX, BP 134/63 MM HG, HR 75 /MIN, RR 18 /MIN, TEMP 98.4 F, OXYGEN SAT % 95%, SAFE IN ENV? (Y/N) YEST.TITO GUTIERREZ. EXAMINATION GENERAL EXAMINATION: GENERALAWAKE,ALERT ,PLEASANT . PSYCHAFFECT NORMAL . LUNGS:LUNG QUIÑONEZ ARE CLEAR TO AUSCULTATION BILATERALLY. GOOD MOVEMENT OF AIR . HEART:S1, S2 IN A REGULAR RATE AND RHYTHM. NO SIGNIFICANT MURMURS, RUBS OR GALLOPS NOTED . 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 FOLLOW-UP SCHEDULED IN 3 MONTHS. PATIENT IS ENCOURAGED TO CALL US SOONER SHOULD HIS PAIN RETURN FOR AN EARLIER APPOINTMENT. CONSIDER LUMBAR FACET BLOCKS DIAGNOSTIC TESTING/RADIOFREQUENCY. OTHER CHRONIC PAIN PAIN PROCEDURE LOGDATE OF PROCEDURE1PROCEDURE:BILATERAL THERAPEUTIC LUMBAR FACET BLOCK L4-L5, L5-F5HECBFX OF PRE SEDATEVALIUM 5MG, OXYCODONE 5MGRESULT:GREATER THAN 80% REDUCTION INPAIN CONTINUES TODAY PROCEDURE CODES FA211 ESTABILISHED PATIENT [facility] FACILITY CHARGE DISPOSITION & COMMUNICATION FOLLOW UP 3 MONTHS (REASON: LOW BACK PAIN/RESPONDS WELL TO THERAPEUTIC LUMBAR BLOCK.) ELECTRONICALLY SIGNED BY ANITHA LOVE ON 09/29/2020 AT 12:44 PM EDT DISCLAIMER : THIS IS A VISIT SUMMARY EXTRACTED FROM THE [employer] [employer] CHART. IT IS NOT A COPY OF THE [employer] PROGRESS NOTE. TERI
== END ==
LOC: M PAIN 09:45
PROVIDERS: ATTEND Nurse Practitioner Family
DX: M47.816 Spondylosis without myelopathy or radiculopathy, lumbar region (principal); G89.29 Other chronic pain; E11.9 Type 2 diabetes mellitus without complications; Z86.59 Personal history of other mental and behavioral disorders; Z87.891 Personal history of nicotine dependence; Z88.6 Allergy status to analgesic agent; Z88.8 Allergy status to other drugs, medicaments and biological substances; Z79.82 Long term (current) use of aspirin; Z79.84 Long term (current) use of oral hypoglycemic drugs; Z79.899 Other long term (current) drug therapy

== ENCOUNTER → 2020-12-14 | Outpatient (REF) | payer MEDICARE, BC ==
[~2020-12-14] MED LIST changes: +BUPR150T5; +SILO8CAP
== END ==
LOC: M LAB REF 11:56
PROVIDERS: ATTEND Internal Medicine Gastroenterology
DX: R19.7 Diarrhea, unspecified (principal)

== ENCOUNTER → 2020-12-22 | Outpatient (CLI) | payer MEDICARE, BC | LOC: M LABSMTC 09:37 | PROVIDERS: ATTEND Anesthesiology | DX: Z01.812 Encounter for preprocedural laboratory examination (principal); Z20.822 Contact with and (suspected) exposure to COVID-19 ==

== ENCOUNTER 2020-12-27 06:37 | Day surgery (SDC) | payer MEDICARE, BC ==
[~2020-12-27] VITALS: Ht 162.6 cm; Wt 66.7 kg
[~2020-12-27 06:37] MED LIST changes: +NS 1,000 ML IV ONE
[2020-12-27] MEDS ORDERED: propofoL 200 MG/20 ML VIAL As Ordered ONE ×2 (06:48→07:39)
[2020-12-27] MEDS ORDERED: LIDOCAINE 2% 100MG/5ML SDV (FOR ANES.) As Ordered ONE (06:48)
[2020-12-27] MEDS ORDERED: fentaNYL 100 MCG/2 ML INJECTION (J3010) As Ordered ONE (07:34)
[2020-12-27] MEDS ORDERED: ePHEDrine SULFATE 25 MG/5 ML(5MG/ML) SYRINGE As Ordered ONE (07:45)
--- NOTE | 2020-12-27 07:46 | ROOR ---
Patient Name: Hoang Palencia Procedure Date: 12/27/2020 7:38 AM Date of : 1940 Age: 80 Room: [facility] Gender: Male Note Status: Finalized Procedure: Upper GI endoscopy Indications: Weight loss Providers: Tye Leonard MD Referring MD: ESTELA LYNCH Requesting Provider: Medicines: Monitored Anesthesia Care Complications: No immediate complications. Procedure: Pre-Anesthesia Assessment: - The heart rate, respiratory rate, oxygen saturations, blood pressure, adequacy of pulmonary ventilation, and response to care were monitored throughout the procedure. The Endoscope was introduced through the mouth, and advanced to the second part of duodenum. The upper GI endoscopy was accomplished without difficulty. The patient tolerated the procedure well. Findings: Localized mild inflammation characterized by erythema was found in the first portion of the duodenum. Biopsies were taken with a cold forceps for histology. The exam was otherwise without abnormality. Impression: - Mild duodenitis. Biopsied. - The examination was otherwise normal. Recommendation: - Continue present medications. Procedure Code(s): --- Professional --- 53971, Esophagogastroduodenoscopy, flexible, transoral; with biopsy, single or multiple Diagnosis Code(s): --- Professional --- K29.80, Duodenitis without bleeding R63.4, Abnormal weight loss CPT copyright 2019 [employer]. All rights reserved. The codes documented in this report are preliminary and upon campus monitor review may be revised to meet current compliance requirements. Tye Leonard MD Tye Leonard MD 12/27/2020 7:45:52 AM Electronically signed by Tye Leonard MD Number of Addenda: 0 Note Initiated On: 12/27/2020 7:38 AM Estimated Blood Loss: Estimated blood loss: none.
--- NOTE | 2020-12-27 08:06 | ROOR ---
Patient Name: Hoang Palencia Procedure Date: 12/27/2020 7:27 AM Date of : 1940 Age: 80 Room: [facility] Gender: Male Note Status: Finalized Procedure: Colonoscopy Indications: Follow-up of microscopic colitis, Chronic diarrhea, Weight loss Providers: Tye Leonard MD Referring MD: ESTELA LYNCH Requesting Provider: Medicines: Monitored Anesthesia Care Complications: No immediate complications. Procedure: Pre-Anesthesia Assessment: - The heart rate, respiratory rate, oxygen saturations, blood pressure, adequacy of pulmonary ventilation, and response to care were monitored throughout the procedure. The Colonoscope was introduced through the anus and advanced to 10 cm into the ileum. The colonoscopy was performed without difficulty. The patient tolerated the procedure well. The quality of the bowel preparation was good. Findings: The perianal and digital rectal examinations were normal. A diminutive polyp was found in the splenic flexure. The polyp was sessile. The polyp was removed with a cold snare. Resection and retrieval were complete. Mild sigmoid diverticulosis and small internal hemorrhoids. The exam was otherwise without abnormality. Biopsies for histology were taken with a cold forceps from the entire colon for evaluation of microscopic colitis. Impression: - One diminutive polyp at the splenic flexure, removed with a cold snare. Resected and retrieved. - Mild sigmoid diverticulosis and small internal hemorrhoids. - The colon and terminal ileum are otherwise normal. - Biopsies were taken with a cold forceps from the entire colon for evaluation of microscopic colitis. Recommendation: - Telephone endoscopist for pathology results in 2 weeks. Procedure Code(s): --- Professional --- 50187, Colonoscopy, flexible; with removal of tumor(s), polyp(s), or other lesion(s) by snare technique 24860, 59, Colonoscopy, flexible; with biopsy, single or multiple Diagnosis Code(s): --- Professional --- R63.4, Abnormal weight loss K52.839, Microscopic colitis, unspecified K63.5, Polyp of colon K52.9, Noninfective gastroenteritis and colitis, unspecified CPT copyright 2019 [employer]. All rights reserved. The codes documented in this report are preliminary and upon central supply manager review may be revised to meet current compliance requirements. Tye Leonard MD Tye Leonard MD 12/27/2020 8:05:42 AM Electronically signed by Tye Leonard MD Number of Addenda: 0 Note Initiated On: 12/27/2020 7:27 AM Estimated Blood Loss: Estimated blood loss: none.
[2020-12-27 08:25] VITALS: BP 133/65
== END 2020-12-27 08:39 | disposition home or self-care (01) ==
LOC: M OPP 06:37
PROVIDERS: ATTEND Internal Medicine Gastroenterology
DX: K52.839 Microscopic colitis, unspecified (principal); K63.5 Polyp of colon; K57.30 Diverticulosis of large intestine without perforation or abscess without bleeding; K64.8 Other hemorrhoids; R63.4 Abnormal weight loss; K29.80 Duodenitis without bleeding; E11.9 Type 2 diabetes mellitus without complications; G47.30 Sleep apnea, unspecified; Z79.82 Long term (current) use of aspirin; Z79.84 Long term (current) use of oral hypoglycemic drugs; Z79.899 Other long term (current) drug therapy; Z88.8 Allergy status to other drugs, medicaments and biological substances; Z87.891 Personal history of nicotine dependence
CPT/HCPCS: 43239; 45380; 45385; 88305; J3010

== ENCOUNTER → 2021-01-17 | Outpatient (CLI) | payer MEDICARE, BC ==
[~2021-01-17] MED LIST changes: -NS 1,000 ML IV ONE
--- NOTE | 2021-01-18 08:44 | REPVR ---
PROCEDURE INFORMATION: Exam: MR Thoracic Spine Without Contrast Exam date and time: 01/17/2021 2:28 PM Age: 80 years old Clinical indication: Pain in thoracic spine. TECHNIQUE: Imaging protocol: Multiplanar magnetic resonance images of the thoracic spine without contrast. COMPARISON: CT Spine,cervical w/o contrast 03/25/2014 10:09 AM FINDINGS: Vertebrae: Status post posterior decompression at T3/T4. There is subtle fullness in the posterior epidural space at this level with mild flattening of the posterior thoracic cord. There is scoliosis. Spinal cord: See "Vertebrae" finding. Discs/Spinal canal/Neural foramina: There are degenerative changes throughout the thoracic spine including disc space narrowing, disc desiccation, and disc bulging. There is no significant spinal canal stenosis or thoracic cord compression. Soft tissues: Unremarkable. IMPRESSION: 1. Status post posterior decompression at T3/T4. There is subtle fullness in the posterior epidural space at this level with mild flattening of the posterior thoracic cord. Please correlate with surgical history. Direct comparison to prior MRI is recommended. In the absence of prior MRI for comparison purposes, followup MRI in 3 months is recommended. 2. There are degenerative changes throughout the thoracic spine including disc space narrowing, disc desiccation, and disc bulging. There is no significant spinal canal stenosis or thoracic cord compression. 3. There is scoliosis. Electronically signed by: Jd Mattson On 01/18/2021 08:44:09 AM
--- NOTE | 2021-01-18 09:19 | REPVR ---
PROCEDURE INFORMATION: Exam: MR Lumbar Spine Without Contrast Exam date and time: 01/17/2021 2:49 PM Age: 80 years old Clinical indication: Low back pain. TECHNIQUE: Imaging protocol: Multiplanar magnetic resonance images of the lumbar spine without intravenous contrast. COMPARISON: MRI-Spine,Thoracic without con 01/17/2021 1:36 PM FINDINGS: Vertebrae: Unremarkable. Spinal cord: Normal signal. No cord compression. L1-L2: There is degenerative disc disease including disc space narrowing and dessication. There is a moderate disc/osteophyte complex that flattens the ventral thecal sac. There is moderate bilateral neural foraminal narrowing. There is facet arthropathy and ligamentum flavum hypertrophy. There is mild spinal canal stenosis. L2-L3: There is degenerative disc disease including disc space narrowing and dessication. There is mild disc bulging. There is moderate right-sided neuroforaminal narrowing. There is mild left-sided neuroforaminal narrowing. There is facet arthropathy and ligamentum flavum hypertrophy. There is mild spinal canal stenosis. L3-L4: There is degenerative disc disease including disc space narrowing and dessication. There is a moderate disc/osteophyte complex that flattens the ventral thecal sac. There is a superimposed right foraminal disc herniation. There is severe right-sided neuroforaminal narrowing. There is moderate left-sided neuroforaminal narrowing. There is compromise of the right lateral recess. There is facet arthropathy and ligamentum flavum hypertrophy. There is mild/moderate spinal canal stenosis. L4-L5: There is disc desiccation. Disc bulging extends into both neural foramen causing moderate bilateral neural foraminal narrowing. There is exuberant bilateral facet arthropathy and ligamentum flavum hypertrophy. There is moderate/severe spinal canal stenosis. L5-S1: There is disc desiccation. There are moderate degenerative end plate changes at this level. There is moderate disc bulging. There is a small central disc protrusion. There is a superimposed left foraminal disc herniation. There is severe left-sided neuroforaminal narrowing. There is mild right-sided neuroforaminal narrowing. There is exuberant bilateral facet arthropathy and ligamentum flavum hypertrophy. There is mild spinal canal stenosis. Soft tissues: Unremarkable. Kidneys and ureters: There is question of a mass in the left kidney which is not fully characterized on this exam in does not necessarily represent a cyst. 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 IMPRESSION: 1. Advanced multilevel degenerative changes causing varying degrees of spinal canal and neuroforaminal narrowing. Please see details above. 2. There is question of a mass in the left kidney which is not fully characterized on this exam in does not necessarily represent a cyst. Followup renal ultrasound is recommended. 3. 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 Electronically signed by: Jd Mattson On 01/18/2021 09:19:11 AM
== END ==
LOC: M PLAIMG 13:25
PROVIDERS: ATTEND Neurological Surgery
DX: G96.198 Other disorders of meninges, not elsewhere classified (principal); M48.062 Spinal stenosis, lumbar region with neurogenic claudication; M51.36 Other intervertebral disc degeneration, lumbar region; M51.27 Other intervertebral disc displacement, lumbosacral region; M51.26 Other intervertebral disc displacement, lumbar region; M51.24 Other intervertebral disc displacement, thoracic region; M51.34 Other intervertebral disc degeneration, thoracic region

== ENCOUNTER → 2021-09-11 | Outpatient (REF) | payer MEDICARE, BC ==
[~2021-09-11] MED LIST changes: +BUPR-71; -BUPR150T5
[2021-09-11 16:51] LABS: CREATININE FOR GFR 1.69 MG/DL (0.70-1.30)
== END ==
LOC: M LABWUC 15:32
PROVIDERS: ATTEND Psychiatry & Neurology Neurology
DX: I10 Essential (primary) hypertension (principal)

== ENCOUNTER → 2021-09-27 | Outpatient (CLI) | payer MEDICARE, BC | LOC: M PLALAB 09:08 | PROVIDERS: ATTEND Nurse Practitioner Women's Health | DX: Z12.5 Encounter for screening for malignant neoplasm of prostate (principal) | CPT/HCPCS: 36415; G0103 ==

== ENCOUNTER → 2022-06-25 | Outpatient (CLI) | payer MEDICARE, BC ==
[2022-06-25 13:15] LABS: BILIRUBIN,TOTAL 0.5 MG/DL (0.3-1.2); CALCIUM LEVEL 8.8 MG/DL (8.3-10.6); CHOLESTEROL RISK RATIO 2.79 (<5); CREATININE FOR GFR 1.6 MG/DL (0.70-1.30); GLOMERULAR FILTRATION RATE 44.6 (>42); HDL CHOLESTEROL 51.5 MG/DL (>40); LDL CHOLESTEROL 68.3 MG/DL (<100); NON-HDL-C 92.5 MG/DL; POTASSIUM SERUM 4.6 MMOL/L (3.5-5.1); TOTAL PROTEIN 6.7 G/DL (5.7-8.2)
== END ==
LOC: M WUC 09:59
PROVIDERS: ATTEND Physician Assistant
DX: E11.9 Type 2 diabetes mellitus without complications (principal); I10 Essential (primary) hypertension; E78.5 Hyperlipidemia, unspecified

== ENCOUNTER → 2022-06-26 | Outpatient (CLI) | payer MEDICARE, BC | LOC: M WUC 14:03 | PROVIDERS: ATTEND Physician Assistant | DX: R06.02 Shortness of breath (principal); R91.8 Other nonspecific abnormal finding of lung field ==

== ENCOUNTER → 2022-07-06 | Outpatient (CLI) | payer MEDICARE, BC ==
[~2022-07-06] MED LIST changes: +ISOVUE-370 76% 100ML VIAL As Ordered ONE
== END ==
LOC: M RAD 15:19
PROVIDERS: ATTEND Physician Assistant
DX: R91.8 Other nonspecific abnormal finding of lung field (principal); J84.10 Pulmonary fibrosis, unspecified; J47.9 Bronchiectasis, uncomplicated; J43.9 Emphysema, unspecified; I70.0 Atherosclerosis of aorta; I25.10 Atherosclerotic heart disease of native coronary artery without angina pectoris
CPT/HCPCS: 71260; Q9967

== ENCOUNTER 2023-02-23 22:36 | Inpatient (IN) | payer MEDICARE, BC ==
[~2023-02-23] VITALS: Ht 162.6 cm; Wt 61.4 kg
[~2023-02-23 22:36] MED LIST changes: -ISOVUE-370 76% 100ML VIAL As Ordered ONE; -SILO8CAP; +SILO8CAP PO
[2023-02-23 22:59] LABS: ABG BASE EXCESS -1.9 (-2.0-2.0); ABG HCO3 21.4 MMOL/L (22.0-26.0); ABG O2 SATURATION 96.7 % (95.0-99.0); ABG PARTIAL PRESSURE CO2 32.3 mmHg (35.0-45.0); ABG PARTIAL PRESSURE O2 91.5 mmHg (75.0-100.0); ABG STANDARD HCO3 22.8 MMOL/L. (22.0-26.0); ABG TOTAL CO2 22.4 MMOL/L (23.0-31.0)
[2023-02-23] MEDS ORDERED: IPRATROPIUM 0.5MG/ALBUTEROL 2.5MG INH SOL UD 3ML (DUONEB) NEB PRN (23:15)
[2023-02-23] MEDS: MAG SULF 1GM/100ML (MAG RUN) 1 GM in IV 1 EA IV SCH (23:45)
[2023-02-24 00:11] LABS: ALBUMIN 3.2 G/DL (3.2-5.2); BASO % 0.2 % (0.0-1.0); BILIRUBIN,DIRECT 0.2 MG/DL (<0.4); BILIRUBIN,TOTAL 0.5 MG/DL (0.3-1.2); CALCIUM LEVEL 8.3 MG/DL (8.3-10.6); CREATININE FOR GFR 1.43 MG/DL (0.70-1.30); EOS # 0.3 10^3/uL (0.0-0.5); EOS % 2.1 % (0.0-3.0); GLOMERULAR FILTRATION RATE 50.7 (>35); HEMATOCRIT 36.7 % (42.0-52.0); HEMOGLOBIN 12.1 g/dl (13.5-17.5); LYMPH # 0.5 10^3/uL (1.5-5.0); LYMPH % 3.2 % (24.0-44.0); MEAN CORPUSCULAR HEMOGLOBIN 33.5 pg (27.0-33.0); MEAN CORPUSCULAR VOLUME 101.7 fl (80.0-96.0); MONO # 0.8 10^3/uL (0.0-0.8); MONO % 5.9 % (2.0-8.0); NEUTROPHILS % 86.7 % (36.0-66.0); PLATELET COUNT, AUTOMATED 268 10^3/uL (150-450); RED BLOOD COUNT 3.61 10^6/uL (4.30-6.10); TOTAL PROTEIN 6.7 G/DL (5.7-8.2); WHITE BLOOD COUNT 13.9 10^3/uL (4.0-10.0)
[2023-02-24 00:13] LABS: THYROID STIMULATING HORMONE 3.349 uIU/ML (0.55-4.78)
[2023-02-24 00:23] LABS: PROCALCITONIN 0.13 ng/ml
[2023-02-24] MEDS: MAG SULF 1GM/100ML (MAG RUN) 1 GM in IV 1 EA IV SCH (01:02)
[2023-02-24] MEDS ORDERED: methylPREDNISolone 125MG 2ML VIAL IV ONE (01:55)
[2023-02-24] MEDS ORDERED: XALA0.007 OS (02:33)
[2023-02-24] MEDS ORDERED: ZOLO100T PO (02:33)
[2023-02-24] MEDS ORDERED: LEVO50TA5 PO (02:33)
[2023-02-24] MEDS ORDERED: TREL1AER PO (02:33)
[2023-02-24] MEDS ORDERED: ACET1TAB55 PO (02:33)
[2023-02-24] MEDS ORDERED: ASPI81TA26 PO (02:33)
[2023-02-24] MEDS ORDERED: HOME MED LIST COMPLETE! XX SCH (02:35)
[2023-02-24] MEDS ORDERED: VITA500T73 PO (02:37)
[2023-02-24] MEDS ORDERED: VITA100093 PO (02:37)
[2023-02-24] MEDS ORDERED: ANTI2CAP PO (02:37)
[2023-02-24] MEDS ORDERED: IPRATROPIUM 0.5MG/ALBUTEROL 2.5MG INH SOL UD 3ML (DUONEB) NEB PRN (04:40)
[2023-02-24] MEDS ORDERED: ACETAMINOPHEN TAB 650MG DOSE (2X325MG) PO PRN (04:40)
[2023-02-24] MEDS ORDERED: MAALOX 30 ML SUSP *UDC PO PRN (04:40)
[2023-02-24] MEDS ORDERED: MOM 30ML SUSPENSION UDC PO PRN (04:40)
[2023-02-24] MEDS: LEVOTHYROXINE 50MCG TABLET (0.05MG) PO SCH (06:59)
[2023-02-24] MEDS: CYANOCOBALAMIN 500 MCG TAB PO SCH (08:54)
[2023-02-24] MEDS: SERTRALINE 100 MG TAB PO SCH (08:54)
[2023-02-24] MEDS: VITAMIN D 1,000 INTERNATIONAL UNITS TABLET PO SCH (08:54)
[2023-02-24] MEDS: DOCUSATE SODIUM 100MG CAPSULE PO SCH ×2 (08:54→20:18)
[2023-02-24] MEDS: SITagliptin 50 MG TAB (JANUVIA) PO SCH (08:54)
[2023-02-24] MEDS ORDERED: TRELEGY ELLIPTA INH SCH (09:00)
[2023-02-24] MEDS ORDERED: metFORMIN (GLUCOPHAGE) 1000MG TABLET PO SCH (09:00)
[2023-02-24 09:29] LABS: ABG BASE EXCESS -0.7 (-2.0-2.0); ABG HCO3 23.4 MMOL/L (22.0-26.0); ABG O2 SATURATION 95.7 % (95.0-99.0); ABG PARTIAL PRESSURE CO2 36.5 mmHg (35.0-45.0); ABG PARTIAL PRESSURE O2 79.2 mmHg (75.0-100.0); ABG STANDARD HCO3 23.8 MMOL/L. (22.0-26.0); ABG TOTAL CO2 24.5 MMOL/L (23.0-31.0); ABG pH (ARTERIAL) 7.424 UNITS (7.350-7.450)
[2023-02-24] MEDS: TIOTROPIUM INHALER/CAPSULE (SPIRIVA) INH SCH (09:51)
[2023-02-24] MEDS: SYMBICORT 160/4.5MCG INHALER 6GM INH SCH ×2 (09:51→20:11)
[2023-02-24] MEDS: methylPREDNISolone 125MG 2ML VIAL IV SCH ×2 (09:56→20:18)
[2023-02-24] MEDS ORDERED: ISOVUE-370 76% 100ML VIAL As Ordered ONE ×2 (11:17→12:13)
[2023-02-24 11:20] VITALS: BP 122/65; TEMP 97.5; O2SAT 91
[2023-02-24] MEDS: ALBUTEROL SULFATE 2.5MG/0.5ML INH NEB SOLN NEB SCH ×4 (11:24→23:58)
[2023-02-24 14:00] VITALS: BP 121/61; TEMP 98.2; O2SAT 95
[2023-02-24] MEDS: glipiZIDE (GLUCOTROL) 5 MG TAB PO SCH (16:50)
[2023-02-24] MEDS: ATORVASTATIN 20 MG TAB PO SCH (20:18)
[2023-02-24] MEDS: LATANOPROST 0.005% OPHTH SOLN 2.5 ML OS SCH (20:18)
[2023-02-24] MEDS: ASPIRIN 81MG ENTERIC TABLET PO SCH (20:18)
[2023-02-25] VITALS (25 sets, daily range): BP systolic 117–145; BP diastolic 59–70; TEMP 97.1–98.5; O2SAT 82–98
[2023-02-25] MEDS: cefTRIAXone SOD 2 GM in D5W MINI-BAG PLUS 50 ML IV SCH ×2 (01:10→23:58)
[2023-02-25] MEDS: DOXYCYCLINE HYCLATE 100 MG in D5W MINI-BAG PLUS 100 ML IV SCH ×2 (01:40→13:31)
[2023-02-25] MEDS: ALBUTEROL SULFATE 2.5MG/0.5ML INH NEB SOLN NEB SCH ×6 (03:00→23:47)
[2023-02-25] MEDS: LEVOTHYROXINE 50MCG TABLET (0.05MG) PO SCH (06:00)
[2023-02-25 06:26] LABS: BASO % 0.1 % (0.0-1.0); HEMATOCRIT 32.6 % (42.0-52.0); LYMPH # 0.3 10^3/uL (1.5-5.0); LYMPH % 1.9 % (24.0-44.0); MEAN CORPUSCULAR HEMOGLOBIN 33.3 pg (27.0-33.0); MEAN CORPUSCULAR HGB CONC 33.7 g/dl (32.0-36.5); MEAN CORPUSCULAR VOLUME 98.8 fl (80.0-96.0); MONO # 0.5 10^3/uL (0.0-0.8); MONO % 3.1 % (2.0-8.0); NEUTROPHILS # 13.6 10^3/uL (1.5-8.5); PLATELET COUNT, AUTOMATED 225 10^3/uL (150-450); WHITE BLOOD COUNT 14.5 10^3/uL (4.0-10.0)
[2023-02-25 06:32] LABS: ERYTHROCYTE SEDIMENTATION RATE 83 mm/hr (0-20)
[2023-02-25 06:52] LABS: C REACTIVE PROTEIN QUANTITATIV 16.9 MG/DL (<1.0)
[2023-02-25 06:53] LABS: CALCIUM LEVEL 9.2 MG/DL (8.3-10.6); CREATININE FOR GFR 1.45 MG/DL (0.70-1.30); GLOMERULAR FILTRATION RATE 49.9 (>35); POTASSIUM SERUM 4.2 MMOL/L (3.5-5.1)
[2023-02-25 07:01] LABS: PROCALCITONIN 0.19 ng/ml
[2023-02-25 08:28] LABS: HEMOGLOBIN A1c 6.1 % (4.0-6.0)
[2023-02-25] MEDS: methylPREDNISolone 125MG 2ML VIAL IV SCH ×2 (08:37→21:29)
[2023-02-25] MEDS: SITagliptin 50 MG TAB (JANUVIA) PO SCH (08:39)
[2023-02-25] MEDS: SERTRALINE 100 MG TAB PO SCH (08:39)
[2023-02-25] MEDS: CYANOCOBALAMIN 500 MCG TAB PO SCH (08:39)
[2023-02-25] MEDS: glipiZIDE (GLUCOTROL) 5 MG TAB PO SCH (08:39)
[2023-02-25] MEDS: DOCUSATE SODIUM 100MG CAPSULE PO SCH ×2 (08:39→21:28)
[2023-02-25] MEDS: VITAMIN D 1,000 INTERNATIONAL UNITS TABLET PO SCH (08:39)
[2023-02-25] MEDS ORDERED: LEVEMIR (INSULIN DETEMIR) 1 UNITS/0.01ML SC SCH (09:00)
[2023-02-25] MEDS: TIOTROPIUM INHALER/CAPSULE (SPIRIVA) INH SCH (09:47)
[2023-02-25] MEDS: SYMBICORT 160/4.5MCG INHALER 6GM INH SCH ×2 (09:47→20:17)
[2023-02-25] MEDS ORDERED: FUROSEMIDE 40MG/4ML VIAL IV ONE (13:00)
[2023-02-25] MEDS: ASPIRIN 81MG ENTERIC TABLET PO SCH (21:28)
[2023-02-25] MEDS: ATORVASTATIN 20 MG TAB PO SCH (21:28)
[2023-02-25] MEDS: LATANOPROST 0.005% OPHTH SOLN 2.5 ML OS SCH (22:13)
[2023-02-26] VITALS (35 sets, daily range): BP systolic 130–154; BP diastolic 63–73; TEMP 97.1–98.4; O2SAT 76–99
[2023-02-26] MEDS: DOXYCYCLINE HYCLATE 100 MG in D5W MINI-BAG PLUS 100 ML IV SCH (00:56)
[2023-02-26] MEDS: ALBUTEROL SULFATE 2.5MG/0.5ML INH NEB SOLN NEB SCH ×5 (03:01→19:49)
[2023-02-26] MEDS: LEVOTHYROXINE 50MCG TABLET (0.05MG) PO SCH (05:30)
[2023-02-26 05:53] LABS: BASO % 0.1 % (0.0-1.0); HEMATOCRIT 33.6 % (42.0-52.0); HEMOGLOBIN 11.2 g/dl (13.5-17.5); LYMPH # 0.4 10^3/uL (1.5-5.0); LYMPH % 2.1 % (24.0-44.0); MEAN CORPUSCULAR HEMOGLOBIN 33.4 pg (27.0-33.0); MEAN CORPUSCULAR HGB CONC 33.3 g/dl (32.0-36.5); MEAN CORPUSCULAR VOLUME 100.3 fl (80.0-96.0); MONO # 0.4 10^3/uL (0.0-0.8); MONO % 2.2 % (2.0-8.0); NEUTROPHILS # 16.3 10^3/uL (1.5-8.5); NEUTROPHILS % 95.1 % (36.0-66.0); PLATELET COUNT, AUTOMATED 271 10^3/uL (150-450); RED BLOOD COUNT 3.35 10^6/uL (4.30-6.10); WHITE BLOOD COUNT 17.2 10^3/uL (4.0-10.0)
[2023-02-26 06:27] LABS: CALCIUM LEVEL 9.2 MG/DL (8.3-10.6); CREATININE FOR GFR 1.65 MG/DL (0.70-1.30); GLOMERULAR FILTRATION RATE 42.9 (>35); POTASSIUM SERUM 4.4 MMOL/L (3.5-5.1)
[2023-02-26] MEDS: TIOTROPIUM INHALER/CAPSULE (SPIRIVA) INH SCH (07:15)
[2023-02-26] MEDS: SYMBICORT 160/4.5MCG INHALER 6GM INH SCH ×2 (07:15→19:49)
[2023-02-26] MEDS: LEVEMIR (INSULIN DETEMIR) 1 UNITS/0.01ML SC SCH (08:29)
[2023-02-26] MEDS: VITAMIN D 1,000 INTERNATIONAL UNITS TABLET PO SCH (08:30)
[2023-02-26] MEDS: DOCUSATE SODIUM 100MG CAPSULE PO SCH ×2 (08:30→20:07)
[2023-02-26] MEDS: SITagliptin 50 MG TAB (JANUVIA) PO SCH (08:30)
[2023-02-26] MEDS: CYANOCOBALAMIN 500 MCG TAB PO SCH (08:30)
[2023-02-26] MEDS: SERTRALINE 100 MG TAB PO SCH (08:30)
[2023-02-26] MEDS: methylPREDNISolone 125MG 2ML VIAL IV SCH ×2 (08:30→20:07)
[2023-02-26] MEDS: DOXYCYCLINE HYCLATE 100MG TABLET PO SCH ×2 (12:25→20:07)
[2023-02-26] MEDS: ASPIRIN 81MG ENTERIC TABLET PO SCH (20:07)
[2023-02-26] MEDS: LATANOPROST 0.005% OPHTH SOLN 2.5 ML OS SCH (20:07)
[2023-02-26] MEDS: ATORVASTATIN 20 MG TAB PO SCH (20:07)
[2023-02-26] MEDS: cefTRIAXone SOD 2 GM in D5W MINI-BAG PLUS 50 ML IV SCH (23:45)
[2023-02-27] VITALS (26 sets, daily range): BP systolic 130–142; BP diastolic 66–79; TEMP 97.4–98.9; O2SAT 82–99
[2023-02-27] MEDS: ALBUTEROL SULFATE 2.5MG/0.5ML INH NEB SOLN NEB SCH ×7 (01:29→23:40)
[2023-02-27] MEDS: LEVOTHYROXINE 50MCG TABLET (0.05MG) PO SCH (06:08)
[2023-02-27 06:23] LABS: BASO % 0.1 % (0.0-1.0); HEMATOCRIT 32.8 % (42.0-52.0); HEMOGLOBIN 10.8 g/dl (13.5-17.5); LYMPH # 0.5 10^3/uL (1.5-5.0); LYMPH % 3.7 % (24.0-44.0); MEAN CORPUSCULAR HGB CONC 32.9 g/dl (32.0-36.5); MEAN CORPUSCULAR VOLUME 100.3 fl (80.0-96.0); MONO # 0.6 10^3/uL (0.0-0.8); MONO % 4.3 % (2.0-8.0); NEUTROPHILS # 12.2 10^3/uL (1.5-8.5); NEUTROPHILS % 91.4 % (36.0-66.0); PLATELET COUNT, AUTOMATED 275 10^3/uL (150-450); RED BLOOD COUNT 3.27 10^6/uL (4.30-6.10); WHITE BLOOD COUNT 13.3 10^3/uL (4.0-10.0)
[2023-02-27 06:48] LABS: CALCIUM LEVEL 8.8 MG/DL (8.3-10.6); CREATININE FOR GFR 1.54 MG/DL (0.70-1.30); GLOMERULAR FILTRATION RATE 46.5 (>35); POTASSIUM SERUM 4.6 MMOL/L (3.5-5.1)
[2023-02-27] MEDS: TIOTROPIUM INHALER/CAPSULE (SPIRIVA) INH SCH (07:40)
[2023-02-27] MEDS: SYMBICORT 160/4.5MCG INHALER 6GM INH SCH ×2 (07:40→20:00)
[2023-02-27] MEDS: methylPREDNISolone 125MG 2ML VIAL IV SCH ×2 (09:37→20:58)
[2023-02-27] MEDS: SERTRALINE 100 MG TAB PO SCH (09:38)
[2023-02-27] MEDS: DOCUSATE SODIUM 100MG CAPSULE PO SCH ×2 (09:38→20:58)
[2023-02-27] MEDS: VITAMIN D 1,000 INTERNATIONAL UNITS TABLET PO SCH (09:38)
[2023-02-27] MEDS: SITagliptin 50 MG TAB (JANUVIA) PO SCH (09:38)
[2023-02-27] MEDS: DOXYCYCLINE HYCLATE 100MG TABLET PO SCH ×2 (09:38→20:58)
[2023-02-27] MEDS: LEVEMIR (INSULIN DETEMIR) 1 UNITS/0.01ML SC SCH (09:38)
[2023-02-27] MEDS: CYANOCOBALAMIN 500 MCG TAB PO SCH (09:38)
[2023-02-27] MEDS: LATANOPROST 0.005% OPHTH SOLN 2.5 ML OS SCH (20:57)
[2023-02-27] MEDS: ASPIRIN 81MG ENTERIC TABLET PO SCH (20:58)
[2023-02-27] MEDS: ATORVASTATIN 20 MG TAB PO SCH (20:58)
[2023-02-27] MEDS: cefTRIAXone SOD 2 GM in D5W MINI-BAG PLUS 50 ML IV SCH (23:48)
[2023-02-28] VITALS (7 sets, daily range): BP systolic 125–153; BP diastolic 63–80; TEMP 96.6–98.3; O2SAT 92–99
[2023-02-28] MEDS: ALBUTEROL SULFATE 2.5MG/0.5ML INH NEB SOLN NEB SCH ×6 (04:38→23:10)
[2023-02-28] MEDS: LEVOTHYROXINE 50MCG TABLET (0.05MG) PO SCH (06:14)
[2023-02-28 06:26] LABS: BASO % 0.1 % (0.0-1.0); HEMATOCRIT 34.7 % (42.0-52.0); HEMOGLOBIN 11.3 g/dl (13.5-17.5); LYMPH # 0.6 10^3/uL (1.5-5.0); LYMPH % 5.9 % (24.0-44.0); MEAN CORPUSCULAR HEMOGLOBIN 32.8 pg (27.0-33.0); MEAN CORPUSCULAR HGB CONC 32.6 g/dl (32.0-36.5); MEAN CORPUSCULAR VOLUME 100.6 fl (80.0-96.0); MONO # 0.4 10^3/uL (0.0-0.8); MONO % 3.7 % (2.0-8.0); NEUTROPHILS # 8.5 10^3/uL (1.5-8.5); NEUTROPHILS % 89.7 % (36.0-66.0); PLATELET COUNT, AUTOMATED 266 10^3/uL (150-450); RED BLOOD COUNT 3.45 10^6/uL (4.30-6.10); WHITE BLOOD COUNT 9.5 10^3/uL (4.0-10.0)
[2023-02-28 06:42] LABS: CALCIUM LEVEL 8.8 MG/DL (8.3-10.6); CREATININE FOR GFR 1.37 MG/DL (0.70-1.30); GLOMERULAR FILTRATION RATE 53.2 (>35); POTASSIUM SERUM 4.7 MMOL/L (3.5-5.1)
[2023-02-28] MEDS: SYMBICORT 160/4.5MCG INHALER 6GM INH SCH ×2 (07:30→19:25)
[2023-02-28] MEDS: TIOTROPIUM INHALER/CAPSULE (SPIRIVA) INH SCH (07:30)
[2023-02-28] MEDS: LEVEMIR (INSULIN DETEMIR) 1 UNITS/0.01ML SC SCH (09:36)
[2023-02-28] MEDS: methylPREDNISolone 125MG 2ML VIAL IV SCH ×2 (09:36→20:20)
[2023-02-28] MEDS: DOCUSATE SODIUM 100MG CAPSULE PO SCH ×2 (09:37→20:16)
[2023-02-28] MEDS: SERTRALINE 100 MG TAB PO SCH (09:37)
[2023-02-28] MEDS: DOXYCYCLINE HYCLATE 100MG TABLET PO SCH ×2 (09:37→20:20)
[2023-02-28] MEDS: SITagliptin 50 MG TAB (JANUVIA) PO SCH (09:37)
[2023-02-28] MEDS: VITAMIN D 1,000 INTERNATIONAL UNITS TABLET PO SCH (09:37)
[2023-02-28] MEDS: CYANOCOBALAMIN 500 MCG TAB PO SCH (09:37)
[2023-02-28] MEDS: ATORVASTATIN 20 MG TAB PO SCH (20:20)
[2023-02-28] MEDS: LATANOPROST 0.005% OPHTH SOLN 2.5 ML OS SCH (20:20)
[2023-02-28] MEDS: ASPIRIN 81MG ENTERIC TABLET PO SCH (20:20)
[2023-03-01] VITALS (17 sets, daily range): BP systolic 113–151; BP diastolic 60–75; TEMP 97.2–98.2; O2SAT 81–99
[2023-03-01] MEDS: cefTRIAXone SOD 2 GM in D5W MINI-BAG PLUS 50 ML IV SCH ×2 (00:21→23:32)
[2023-03-01] MEDS: ALBUTEROL SULFATE 2.5MG/0.5ML INH NEB SOLN NEB SCH ×6 (04:00→23:49)
[2023-03-01] MEDS: LEVOTHYROXINE 50MCG TABLET (0.05MG) PO SCH (05:16)
[2023-03-01 06:30] LABS: BASO % 0.1 % (0.0-1.0); HEMATOCRIT 34.2 % (42.0-52.0); HEMOGLOBIN 11.1 g/dl (13.5-17.5); LYMPH # 0.5 10^3/uL (1.5-5.0); LYMPH % 4.5 % (24.0-44.0); MEAN CORPUSCULAR HEMOGLOBIN 32.5 pg (27.0-33.0); MEAN CORPUSCULAR HGB CONC 32.5 g/dl (32.0-36.5); MONO # 0.4 10^3/uL (0.0-0.8); MONO % 3.3 % (2.0-8.0); NEUTROPHILS # 10.2 10^3/uL (1.5-8.5); NEUTROPHILS % 91.1 % (36.0-66.0); PLATELET COUNT, AUTOMATED 285 10^3/uL (150-450); RED BLOOD COUNT 3.42 10^6/uL (4.30-6.10); WHITE BLOOD COUNT 11.2 10^3/uL (4.0-10.0)
[2023-03-01 07:04] LABS: CALCIUM LEVEL 9.1 MG/DL (8.3-10.6); CREATININE FOR GFR 1.34 MG/DL (0.70-1.30); GLOMERULAR FILTRATION RATE 54.6 (>35); POTASSIUM SERUM 4.8 MMOL/L (3.5-5.1)
[2023-03-01] MEDS: LEVEMIR (INSULIN DETEMIR) 1 UNITS/0.01ML SC SCH (08:30)
[2023-03-01] MEDS: SITagliptin 50 MG TAB (JANUVIA) PO SCH (08:31)
[2023-03-01] MEDS: DOXYCYCLINE HYCLATE 100MG TABLET PO SCH ×2 (08:31→20:35)
[2023-03-01] MEDS: VITAMIN D 1,000 INTERNATIONAL UNITS TABLET PO SCH (08:31)
[2023-03-01] MEDS: methylPREDNISolone 125MG 2ML VIAL IV SCH ×2 (08:31→20:35)
[2023-03-01] MEDS: CYANOCOBALAMIN 500 MCG TAB PO SCH (08:31)
[2023-03-01] MEDS: SERTRALINE 100 MG TAB PO SCH (08:31)
[2023-03-01] MEDS: DOCUSATE SODIUM 100MG CAPSULE PO SCH ×2 (08:32→20:35)
[2023-03-01] MEDS: SYMBICORT 160/4.5MCG INHALER 6GM INH SCH ×2 (09:21→19:49)
[2023-03-01] MEDS: TIOTROPIUM INHALER/CAPSULE (SPIRIVA) INH SCH (09:21)
[2023-03-01] MEDS: ASPIRIN 81MG ENTERIC TABLET PO SCH (20:35)
[2023-03-01] MEDS: ATORVASTATIN 20 MG TAB PO SCH (20:35)
[2023-03-01] MEDS: LATANOPROST 0.005% OPHTH SOLN 2.5 ML OS SCH (20:36)
[2023-03-02] MEDS: ALBUTEROL SULFATE 2.5MG/0.5ML INH NEB SOLN NEB SCH ×5 (03:39→20:39)
[2023-03-02] MEDS: LEVOTHYROXINE 50MCG TABLET (0.05MG) PO SCH (05:20)
[2023-03-02 05:58] LABS: BASO % 0.1 % (0.0-1.0); EOS % 0.1 % (0.0-3.0); HEMATOCRIT 34.6 % (42.0-52.0); HEMOGLOBIN 11.4 g/dl (13.5-17.5); LYMPH # 0.6 10^3/uL (1.5-5.0); LYMPH % 5.5 % (24.0-44.0); MEAN CORPUSCULAR HGB CONC 32.9 g/dl (32.0-36.5); MEAN CORPUSCULAR VOLUME 100.3 fl (80.0-96.0); MONO # 0.4 10^3/uL (0.0-0.8); MONO % 3.9 % (2.0-8.0); NEUTROPHILS # 9.3 10^3/uL (1.5-8.5); NEUTROPHILS % 89.1 % (36.0-66.0); PLATELET COUNT, AUTOMATED 266 10^3/uL (150-450); RED BLOOD COUNT 3.45 10^6/uL (4.30-6.10); WHITE BLOOD COUNT 10.4 10^3/uL (4.0-10.0)
[2023-03-02 06:25] LABS: CALCIUM LEVEL 9.3 MG/DL (8.3-10.6); CREATININE FOR GFR 1.29 MG/DL (0.70-1.30); GLOMERULAR FILTRATION RATE 57.1 (>35); POTASSIUM SERUM 4.6 MMOL/L (3.5-5.1)
[2023-03-02 06:30] VITALS: BP 124/67; TEMP 97.2; O2SAT 92
[2023-03-02 08:04] VITALS: O2SAT 92
[2023-03-02] MEDS: SYMBICORT 160/4.5MCG INHALER 6GM INH SCH ×2 (08:04→20:39)
[2023-03-02] MEDS: TIOTROPIUM INHALER/CAPSULE (SPIRIVA) INH SCH (08:04)
[2023-03-02] MEDS: methylPREDNISolone 125MG 2ML VIAL IV SCH ×2 (08:46→21:04)
[2023-03-02] MEDS: CYANOCOBALAMIN 500 MCG TAB PO SCH (08:47)
[2023-03-02] MEDS: SITagliptin 50 MG TAB (JANUVIA) PO SCH (08:47)
[2023-03-02] MEDS: VITAMIN D 1,000 INTERNATIONAL UNITS TABLET PO SCH (08:47)
[2023-03-02] MEDS: SERTRALINE 100 MG TAB PO SCH (08:47)
[2023-03-02] MEDS: DOXYCYCLINE HYCLATE 100MG TABLET PO SCH ×2 (08:47→21:03)
[2023-03-02] MEDS: DOCUSATE SODIUM 100MG CAPSULE PO SCH ×2 (08:47→21:00)
[2023-03-02] MEDS: LEVEMIR (INSULIN DETEMIR) 1 UNITS/0.01ML SC SCH (08:47)
[2023-03-02 13:49] VITALS: BP 135/60; TEMP 97.5; O2SAT 97
[2023-03-02 20:25] VITALS: BP 131/61; TEMP 97.2; O2SAT 95
[2023-03-02] MEDS: LATANOPROST 0.005% OPHTH SOLN 2.5 ML OS SCH (21:00)
[2023-03-02] MEDS: ASPIRIN 81MG ENTERIC TABLET PO SCH (21:03)
[2023-03-02] MEDS: ATORVASTATIN 20 MG TAB PO SCH (21:03)
[2023-03-03] MEDS: ALBUTEROL SULFATE 2.5MG/0.5ML INH NEB SOLN NEB SCH ×6 (00:11→21:10)
[2023-03-03] MEDS: cefTRIAXone SOD 2 GM in D5W MINI-BAG PLUS 50 ML IV SCH (00:17)
[2023-03-03 05:00] VITALS: BP 138/65; TEMP 97.5; O2SAT 97
[2023-03-03] MEDS: LEVOTHYROXINE 50MCG TABLET (0.05MG) PO SCH (05:22)
[2023-03-03 05:28] VITALS: O2SAT 96
[2023-03-03 06:24] LABS: BASO % 0.2 % (0.0-1.0); EOS % 0.1 % (0.0-3.0); HEMATOCRIT 38.2 % (42.0-52.0); HEMOGLOBIN 12.5 g/dl (13.5-17.5); LYMPH # 0.7 10^3/uL (1.5-5.0); LYMPH % 5.1 % (24.0-44.0); MEAN CORPUSCULAR HEMOGLOBIN 32.8 pg (27.0-33.0); MEAN CORPUSCULAR HGB CONC 32.7 g/dl (32.0-36.5); MEAN CORPUSCULAR VOLUME 100.3 fl (80.0-96.0); MONO # 0.5 10^3/uL (0.0-0.8); MONO % 3.3 % (2.0-8.0); NEUTROPHILS # 12.5 10^3/uL (1.5-8.5); NEUTROPHILS % 89.9 % (36.0-66.0); PLATELET COUNT, AUTOMATED 296 10^3/uL (150-450); RED BLOOD COUNT 3.81 10^6/uL (4.30-6.10); WHITE BLOOD COUNT 13.9 10^3/uL (4.0-10.0)
[2023-03-03 06:28] VITALS: O2SAT 94
[2023-03-03 06:43] LABS: CREATININE FOR GFR 1.31 MG/DL (0.70-1.30); POTASSIUM SERUM 4.6 MMOL/L (3.5-5.1)
[2023-03-03] MEDS: TIOTROPIUM INHALER/CAPSULE (SPIRIVA) INH SCH (07:35)
[2023-03-03] MEDS: SYMBICORT 160/4.5MCG INHALER 6GM INH SCH ×2 (07:35→21:10)
[2023-03-03] MEDS: DOCUSATE SODIUM 100MG CAPSULE PO SCH ×2 (09:00→20:57)
[2023-03-03] MEDS: VITAMIN D 1,000 INTERNATIONAL UNITS TABLET PO SCH (09:26)
[2023-03-03] MEDS: SITagliptin 50 MG TAB (JANUVIA) PO SCH (09:26)
[2023-03-03] MEDS: SERTRALINE 100 MG TAB PO SCH (09:26)
[2023-03-03] MEDS: CYANOCOBALAMIN 500 MCG TAB PO SCH (09:26)
[2023-03-03] MEDS: DOXYCYCLINE HYCLATE 100MG TABLET PO SCH (09:26)
[2023-03-03] MEDS: LEVEMIR (INSULIN DETEMIR) 1 UNITS/0.01ML SC SCH (09:27)
[2023-03-03] MEDS: methylPREDNISolone 125MG 2ML VIAL IV SCH ×2 (09:27→20:57)
[2023-03-03 13:53] VITALS: BP 136/66; TEMP 97.5; O2SAT 84
[2023-03-03 19:54] VITALS: BP 135/67; TEMP 97.9; O2SAT 90
[2023-03-03] MEDS: ATORVASTATIN 20 MG TAB PO SCH (20:57)
[2023-03-03] MEDS: ASPIRIN 81MG ENTERIC TABLET PO SCH (20:57)
[2023-03-03] MEDS: LATANOPROST 0.005% OPHTH SOLN 2.5 ML OS SCH (21:00)
[2023-03-04] MEDS: ALBUTEROL SULFATE 2.5MG/0.5ML INH NEB SOLN NEB SCH ×4 (00:58→11:27)
[2023-03-04 04:29] VITALS: BP 116/57; TEMP 97.2; O2SAT 94
[2023-03-04] MEDS: LEVOTHYROXINE 50MCG TABLET (0.05MG) PO SCH (05:38)
[2023-03-04 06:40] LABS: CREATININE FOR GFR 1.39 MG/DL (0.70-1.30); GLOMERULAR FILTRATION RATE 52.3 (>35); POTASSIUM SERUM 5.1 MMOL/L (3.5-5.1)
[2023-03-04 08:18] VITALS: O2SAT 95
[2023-03-04] MEDS: SYMBICORT 160/4.5MCG INHALER 6GM INH SCH (08:19)
[2023-03-04] MEDS: TIOTROPIUM INHALER/CAPSULE (SPIRIVA) INH SCH (08:20)
[2023-03-04] MEDS: CYANOCOBALAMIN 500 MCG TAB PO SCH (08:49)
[2023-03-04] MEDS: VITAMIN D 1,000 INTERNATIONAL UNITS TABLET PO SCH (08:49)
[2023-03-04] MEDS: DOCUSATE SODIUM 100MG CAPSULE PO SCH (08:50)
[2023-03-04] MEDS: methylPREDNISolone 125MG 2ML VIAL IV SCH (08:50)
[2023-03-04] MEDS: SERTRALINE 100 MG TAB PO SCH (08:50)
[2023-03-04] MEDS: SITagliptin 50 MG TAB (JANUVIA) PO SCH (08:50)
[2023-03-04] MEDS: LEVEMIR (INSULIN DETEMIR) 1 UNITS/0.01ML SC SCH (08:51)
[2023-03-04] MEDS ORDERED: ALB2.5NEB NEB (10:52)
[2023-03-04] MEDS ORDERED: PRED10TA2 PO (10:52)
[2023-03-04] MEDS ORDERED: PANT40TA29 PO (10:53)
== END 2023-03-04 12:55 | disposition home or self-care (01) | DRG 189 ==
LOC: EDBD 22:36 → M ED 22:36 → EDUNIT# 22:36 → M ED INP 22:37 → ENRESERV 02-24 10:04 → M MS4PR 02-24 10:35 → OBSVTOIN 02-25 12:20 → M PCU 02-26 18:05 → M MS5PR 03-01 16:02
PROVIDERS: ADMIT Internal Medicine; ATTEND Internal Medicine Nephrology
PROC: B246ZZZ Ultrasonography of Right and Left Heart (ICD-10-PCS; principal; 2023-02-28)
DX: J96.21 Acute and chronic respiratory failure with hypoxia (principal); J18.9 Pneumonia, unspecified organism; J47.0 Bronchiectasis with acute lower respiratory infection; Z66 Do not resuscitate; J84.10 Pulmonary fibrosis, unspecified; E11.22 Type 2 diabetes mellitus with diabetic chronic kidney disease; E03.9 Hypothyroidism, unspecified; N18.30 Chronic kidney disease, stage 3 unspecified; E78.5 Hyperlipidemia, unspecified; I35.0 Nonrheumatic aortic (valve) stenosis; E55.9 Vitamin D deficiency, unspecified; N40.1 Benign prostatic hyperplasia with lower urinary tract symptoms; G25.81 Restless legs syndrome; I12.9 Hypertensive chronic kidney disease with stage 1 through stage 4 chronic kidney disease, or unspecified chronic kidney disease; F32.A Depression, unspecified; F41.9 Anxiety disorder, unspecified; M54.50 Low back pain, unspecified; G89.29 Other chronic pain; Z79.890 Hormone replacement therapy; Z79.82 Long term (current) use of aspirin; Z79.899 Other long term (current) drug therapy; Z88.8 Allergy status to other drugs, medicaments and biological substances; Z99.81 Dependence on supplemental oxygen; Z87.891 Personal history of nicotine dependence; Z20.822 Contact with and (suspected) exposure to COVID-19

== ENCOUNTER → 2023-03-25 | Outpatient (CLI) | payer MEDICARE, BC ==
[~2023-03-25] MED LIST changes: +ACET1TAB55 PO; +ALB2.5NEB NEB; +ANTI2CAP PO; +ASPI81TA26 PO; +LEVO50TA5 PO; +PANT40TA29 PO; +PRED10TA2 PO; +TREL1AER PO; +VITA100093 PO; +VITA500T73 PO; +XALA0.007 OS; +ZOLO100T PO
[2023-03-25 12:23] LABS: RHEUMATOID FACTOR QUANT < 3.5 IU/ML (<14)
[2023-04-06 00:07] LABS: ANCA-ATYPICAL <1:20 titer (Neg:<1:20); ANTI DS-DNA AB Negative (Negative); ANTI SCLERODERMA ANTIBODIES <0.2 AI (0.0-0.9); ANTINUCLEAR ANTIBODIES DIRECT Negative (Negative); ASPERGILLUS FUMIGATUS AB Negative (Negative); AUREOBASIDIUM PULLULANS Negative (Negative); CYCLIC CITRULLINATED PEPTIDE 6 units (0-19); CYTOPLASMIC NEUTROP AB ANCA-C <1:20 titer (Neg:<1:20); MICROPOLYSPORA FAENI AB Negative (Negative); PERINUCLEAR AB ANCA-P <1:20 titer (Neg:<1:20); PIGEON SERUM AB Negative (Negative); RNP ANTIBODIES <0.2 AI (0.0-0.9); SJOGREN'S ANTI SS-A <0.2 AI (0.0-0.9); SJOGREN'S ANTI SS-B <0.2 AI (0.0-0.9); SMITH ANTIBODIES <0.2 AI (0.0-0.9); THERMOACTINOMYCES SACCHARI Negative (Negative); THERMOACTINOMYCES VULGARIS Negative (Negative)
== END ==
LOC: M WUC 10:15
PROVIDERS: ATTEND Internal Medicine Pulmonary Disease
DX: J84.9 Interstitial pulmonary disease, unspecified (principal)

== ENCOUNTER → 2023-04-01 | Outpatient (CLI) | payer MEDICARE, BC | LOC: M RAD 10:04 | PROVIDERS: ATTEND Internal Medicine Pulmonary Disease | DX: J47.9 Bronchiectasis, uncomplicated (principal); I70.0 Atherosclerosis of aorta; I25.10 Atherosclerotic heart disease of native coronary artery without angina pectoris; J84.9 Interstitial pulmonary disease, unspecified ==